=== PATIENT | female | born 1955 | race Caucasian/White ===

== ENCOUNTER 2018-12-29 11:07 | Outpatient (CLI) | payer MEDICAID, SELFPAY ==
[2018-12-29 12:06] LABS: Abs Immature Grans 0.03 k/cumm (0.0-0.09); Absolute Basophil Count 0.05 k/cumm (0.0-0.2); Absolute Eosinophil Count 0.31 k/cumm (0.0-0.7); Absolute Lymphocyte Count 2.34 k/cumm (1.2-3.4); Absolute Monocyte Count 0.62 k/cumm (0.11-0.7); Absolute Neutrophil Count 5.05 k/cumm (1.2-6.7); Basophils % 0.6; Eosinophils % 3.7; HGB 13.1 g/dL (12.0-15.5); Immature Grans % 0.4; Lymphocytes % 27.9; Mean Corp. HGB Concentration 32.8 g/dL (32.0-36.0); Mean Corpuscular Hemoglobin 29.1 pg (27.0-33.0); Mean Corpuscular Volume 88.9 fL (80-95); Mean Platelet Volume 12.3 fL (8.0-11.0); Monocytes % 7.4; Platelet Count 316 x1000/uL (130-400); RBC Distribution Width 14.5 % (11.7-14.6)
[2018-12-29 13:02] LABS: ALT 22 U/L (14-59); AST 17 U/L (15-37); Albumin 3.7 g/dL (3.4-5.0); Alkaline Phosphatase 96 U/L (46-116); Anion Gap 10.8 mmol/L (3-11); BUN 11 mg/dL (7-18); Bilirubin, Total 0.2 mg/dL (0.2-1.0); CO2 23.2 mmol/L (21.0-32.0); CREATININE 1.05 mg/dL (0.55-1.02); Calcium 8.7 mg/dL (8.5-10.1); Calculated LDL 186 mg/dL; Chloride 104 mmol/L (98-107); Cholesterol 290 mg/dL (50-200); Estimated GFR 52.93 (mL/min/1.73m2); Glucose 107 mg/dL (70-100); HDL Cholesterol 36 mg/dL (40-60); Sodium 138 mmol/L (136-145); TSH (W/Ref FT4) 4.75 uIU/mL (0.36-3.74); Triglyceride 342 mg/dL (30-150)
[2018-12-29 13:25] LABS: FREE T4 0.69 ng/dL (0.76-1.46)
== END 2018-12-29 11:27 ==
PROVIDERS: PCP Internal Medicine; Visit Provider Internal Medicine
DX: I10 Essential (primary) hypertension (principal); R50.9 Fever, unspecified
CPT/HCPCS: 36415; 80053; 80061; 84439; 84443; 85025

== ENCOUNTER 2018-12-29 11:56 | Outpatient (CLI) | payer MEDICAID, SELFPAY ==
--- NOTE | 2018-12-29 11:05 | DI.RAD_ITS ---
EXAM: XR HIP LT COMPLETE AP PELVIS INDICATION: pain LT HIP M25.552. COMPARISON: No exams were available for comparison TECHNIQUE: 2D digital imaging was performed. FINDINGS: The bony structures are normally mineralized. The hip joint appears intact. There is no evidence of a fracture or dislocation.
--- NOTE | 2018-12-29 11:05 | DI.RAD_ITS ---
EXAM: XR CERVICAL SPINE COMP 4-5V INDICATION: CERVICALGIA M54.2. COMPARISON: No exams were available for comparison TECHNIQUE: 2D digital imaging was performed. FINDINGS: Six cervical vertebra are demonstrated on the lateral projection. There is straightening of the norm al cervical lordosis likely on the basis of spasm. There is no evidence of gross disc space narrowin g. Facet joint DJD is identified and is most prominent at C3-C4 and C4-C5. The neural canal and martha ral foramen appear patent. The odontoid is intact and is closely applied to the anterior arch of C1. The prevertebral soft tissues are unremarkable. IMPRESSION: Degenerative changes involving the cervical spine as described above.
== END 2018-12-29 12:16 ==
PROVIDERS: PCP Internal Medicine; Visit Provider Internal Medicine
DX: M54.2 Cervicalgia (principal); M47.812 Spondylosis without myelopathy or radiculopathy, cervical region; M25.552 Pain in left hip
CPT/HCPCS: 72050; 73502

== ENCOUNTER 2019-01-10 15:03 | Outpatient (CLI) | payer MEDICAID, SELFPAY ==
[2019-01-10 16:19] LABS: TSH (W/Ref FT4) 18.48 uIU/mL (0.36-3.74)
[2019-01-10 16:43] LABS: FREE T4 0.72 ng/dL (0.76-1.46)
== END 2019-01-10 15:23 ==
PROVIDERS: PCP Internal Medicine; Visit Provider Internal Medicine
DX: E03.9 Hypothyroidism, unspecified (principal); F30.10 Manic episode without psychotic symptoms, unspecified
CPT/HCPCS: 36415; 84439; 84443

== ENCOUNTER 2019-09-04 11:20 | Outpatient (CLI) | payer MEDICAID, SELFPAY ==
[2019-09-04 12:36] LABS: Abs Immature Grans 0.05 k/cumm (0.0-0.09); Absolute Basophil Count 0.03 k/cumm (0.0-0.2); Absolute Eosinophil Count 0.03 k/cumm (0.0-0.7); Absolute Lymphocyte Count 2.67 k/cumm (1.2-3.4); Absolute Monocyte Count 0.85 k/cumm (0.11-0.7); Basophils % 0.3; Eosinophils % 0.3; HCT 41.7 % (36.0-46.0); HGB 14.3 g/dL (12.0-15.5); Immature Grans % 0.5 %; Lymphocytes % 24.4; Mean Corp. HGB Concentration 34.3 g/dL (32.0-36.0); Mean Corpuscular Hemoglobin 30.1 pg (27.0-33.0); Mean Corpuscular Volume 87.8 fL (80-95); Mean Platelet Volume 13.4 fL (8.0-11.0); Monocytes % 7.8; Neutrophils % 66.7; Platelet Count 279 x1000/uL (130-400); RBC 4.75 m/cumm (4.00-5.20); RBC Distribution Width 13.6 % (11.7-14.6); White Blood Cell Count 10.94 k/cumm (4.4-10.8)
[2019-09-04 13:40] LABS: ALT 20 U/L (14-59); AST 16 U/L (15-37); Albumin 4.5 g/dL (3.4-5.0); Alkaline Phosphatase 90 U/L (46-116); Anion Gap 9.4 mmol/L (3-11); BUN 11 mg/dL (7-18); Bilirubin, Total 0.3 mg/dL (0.2-1.0); C-Reactive Protein 0.22 mg/dL (0.0-0.3); CO2 25.6 mmol/L (21.0-32.0); CREATININE 1.17 mg/dL (0.55-1.02); Calcium 9.6 mg/dL (8.5-10.1); Chloride 100 mmol/L (98-107); Estimated GFR 46.57 (mL/min/1.73m2); Glucose 107 mg/dL (74-106); Potassium 4.8 mmol/L (3.5-5.1); Sodium 135 mmol/L (136-145); TSH 2.71 uIU/mL (0.36-3.74); Total Protein 7.8 g/dL (6.4-8.2)
== END 2019-09-04 11:40 ==
PROVIDERS: PCP Nurse Practitioner; Visit Provider Family Medicine
DX: R53.83 Other fatigue (principal); K52.89 Other specified noninfective gastroenteritis and colitis
CPT/HCPCS: 36415; 80053; 84443; 85025; 86140

== ENCOUNTER 2019-09-07 15:19 | Outpatient (REF) | payer MEDICAID, SELFPAY | END 2019-09-07 15:39 | LOC: LBN 15:19 | PROVIDERS: PCP Nurse Practitioner; Visit Provider Family Medicine | DX: R19.7 Diarrhea, unspecified (principal) | CPT/HCPCS: 87329; 87798 ==

== ENCOUNTER 2020-08-27 16:45 | Outpatient (REF) | payer MEDICAID, SELFPAY ==
[2020-08-27 21:39] LABS: ALT 18 U/L (14-59); AST 15 U/L (15-37); Albumin 4.4 g/dL (3.4-5.0); Alkaline Phosphatase 104 U/L (46-116); Anion Gap 13.3 mmol/L (3-11); BUN 11 mg/dL (7-18); Bilirubin, Total 0.3 mg/dL (0.2-1.0); CO2 23.7 mmol/L (21.0-32.0); Calcium 9.3 mg/dL (8.5-10.1); Chloride 105 mmol/L (98-107); Estimated GFR 55.64 (mL/min/1.73m2); Glucose 112 mg/dL (74-106); Potassium 4.2 mmol/L (3.5-5.1); Sodium 142 mmol/L (136-145); TSH (W/Ref FT4) 3.67 uIU/mL (0.36-3.74); Total Protein 7.9 g/dL (6.4-8.2)
== END 2020-08-27 16:46 | disposition home or self-care (01) ==
LOC: LBN 16:45
PROVIDERS: PCP Nurse Practitioner; Visit Provider Family Medicine
DX: E03.9 Hypothyroidism, unspecified (principal); I10 Essential (primary) hypertension; N18.31 Chronic kidney disease, stage 3a
CPT/HCPCS: 80053; 84443

== ENCOUNTER 2021-02-19 01:24 | Outpatient (CLI) | payer MEDICAID, SELFPAY ==
[2021-02-19 11:23] LABS: Hemoglobin A1C 5.7 % (<5.7)
[2021-02-19 14:00] LABS: Calculated LDL 106 mg/dL (<100); Cholesterol 183 mg/dL (<200); HDL Cholesterol 54 mg/dL (40-60); TSH (W/Ref FT4) 2.98 uIU/mL (0.36-3.74); Triglyceride 118 mg/dL (<150)
== END 2021-02-19 01:25 | disposition home or self-care (01) ==
LOC: LBO 01:24
PROVIDERS: PCP Nurse Practitioner; Visit Provider Nurse Practitioner
DX: E03.8 Other specified hypothyroidism (principal); E06.3 Autoimmune thyroiditis; E78.2 Mixed hyperlipidemia; I10 Essential (primary) hypertension
CPT/HCPCS: 36415; 80061; 83036; 84443

== ENCOUNTER 2021-07-14 14:41 | Emergency (ER) | payer MEDICAID, SELFPAY ==
[2021-07-14 15:09] VITALS: BP 116/58; PULSE 89; RESP 18; TEMP 36.4; O2SAT 98
[2021-07-14 15:36] VITALS: BP 113/63; PULSE 84; RESP 17; TEMP 36.7; O2SAT 94
[2021-07-14 17:30] VITALS: BP 157/89; PULSE 96; RESP 17; TEMP 37; O2SAT 96
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
[2021-07-14] MEDS: Doxycycline Hyclate 100 MG CAP PO (19:32)
== END 2021-07-14 19:35 | disposition home or self-care (01) ==
PROVIDERS: Emergency Provider Physician Assistant; PCP Nurse Practitioner
DX: L03.114 Cellulitis of left upper limb (principal); L03.113 Cellulitis of right upper limb
CPT/HCPCS: 99283

== ENCOUNTER 2021-08-05 22:20 | Outpatient (REF) | payer MEDICAID, SELFPAY | END 2021-08-05 22:21 | disposition home or self-care (01) | LOC: LBN 22:20 | PROVIDERS: PCP Nurse Practitioner; Visit Provider Family Medicine | DX: R21 Rash and other nonspecific skin eruption; L98.8 Other specified disorders of the skin and subcutaneous tissue | CPT/HCPCS: 87077; 87070; 87205 ==

== ENCOUNTER 2021-12-31 12:38 | Outpatient (CLI) | payer MEDICARE, MEDICAID, SELFPAY ==
--- NOTE | 2021-12-31 07:45 | DI.RAD_ITS ---
Exam(s) XR LUMBAR SPINE COMPLETE EXAM: XR LUMBAR SPINE COMPLETE CLINICAL HISTORY: rt hip pain,BACK PAIN, M54.9 TECHNIQUE: COMPARISON: No exams were available for comparison FINDINGS: Five views were obtained. There are moderate degenerative changes of the SI joints. There is a mini mal biconvex thoracolumbar scoliosis. There is no evidence of spondylolysis or spondylolisthesis. T here is mild loss of disc height from L3-4 through L5-S1. Moderate hypertrophic endplate and facet c hanges are noted throughout the lower lumbar spine. No evidence of compression fracture. IMPRESSION: Moderate DJD of the lumbar spine as described above. RADIATION DOSE DELIVERED: Total DLP
== END 2021-12-31 12:58 ==
PROVIDERS: PCP Nurse Practitioner; Visit Provider Family Medicine
DX: M47.816 Spondylosis without myelopathy or radiculopathy, lumbar region (principal); M47.817 Spondylosis without myelopathy or radiculopathy, lumbosacral region
CPT/HCPCS: 72110

== ENCOUNTER 2022-03-16 02:40 | Outpatient (CLI) | payer MEDICARE, MEDICAID, SELFPAY ==
--- NOTE | 2022-03-16 07:30 | DI.RAD_ITS ---
Exam(s) XR HIP LT COMPLETE AP PELVIS EXAM: XR HIP LT COMPLETE AP PELVIS INDICATION: left hip pain,M25.552. COMPARISON: CR XR HIP LT COMPLETE AP PELVIS from 12/29/2018 TECHNIQUE: 2D digital imaging was performed. Three views. FINDINGS: Hip joint spaces are maintained. Mild superior acetabular spurring. Small enthesophytes at greater trochanters. Coarse calcifications seen near right greater trochanter. No bony erosions. SI joints show mild degenerative changes. No fracture or suspicious bony lesion. IMPRESSION: Mild degenerative changes. No acute abnormality. DATA REPOSITORY: RADIATION DOSE DELIVERED:
== END 2022-03-16 03:00 ==
PROVIDERS: PCP Family Medicine; Visit Provider Family Medicine
DX: M16.12 Unilateral primary osteoarthritis, left hip (principal)
CPT/HCPCS: 73502

== ENCOUNTER 2022-05-04 00:51 | Outpatient (CLI) | payer MEDICARE, MEDICAID, SELFPAY ==
--- NOTE | 2022-05-04 08:00 | DI.CTLCSR_ITS ---
Exam(s) CT CHEST LUNG CANCER SCREEN EXAM: CT CHEST LUNG CANCER SCREEN CLINICAL HISTORY: Screening for lung cancer,current smoker,F17.210 TECHNIQUE: Imaging Protocol: Axial computed tomography images with coronal and sagittal reformatted images were created and reviewed COMPARISON: No exams were available for comparison FINDINGS: Tracheobronchial tree: Patent where visualized. Pulmonary parenchyma: No consolidation or dominant measurable mass. No architectural distortion. Lung Nodules: There is a 3.6 mm nodule in the lateral aspect of the right middle lobe. There is a 3. 1 mm nodule in the more inferior aspect of the right middle lobe. There is a triangular shaped 4 mm nodule with smooth margins associated with the right minor fissure. There is a 0.8 cm triangular nod ule with smooth margins associated with the right major fissure. Mediastinum and Kristi: No dominant adenopathy or fluid collection. The esophagus is unremarkable. Thyroid gland: Unremarkable. Lymph nodes: Unremarkable. Pleura: No effusion or pneumothorax. Heart: The heart is not dilated. No coronary artery calcifications are seen. No pericardial effusion . Aorta: Thoracic aorta non-dilated.Atherosclerosis is present. Upper abdomen: Unremarkable. Soft Tissues: Unremarkable. Bones: Within normal limits. IMPRESSION: Pulmonary nodules as described above. Lung RADS Cat 2 - Benign Appearance / Behavior: Nodules with a very low likelihood of becoming a clin ically active cancer due to size or lack of growth Lung-RADS 1.0 CATEGORIES: Category 0 - Prior chest CT exam(s) being located for comparison. Category 1 - Annual screening in 12 months. No nodules or definitely benign nodules. Category 2 - Annual screening in 12 months. Benign appearance. Nodules with low likelihood of becomin g active cancer. Category 3 - 6-month follow-up. Probably benign. Short-term follow-up suggested. Nodules with low lik elihood of becoming active cancer. Category 4A - 3-month follow-up and CT/PET if >8 mm in size. Suspicious finding. Findings which requi re additional testing. Category 4B - Findings which require additional testing and tissue sampling. Suspicious finding. Category 4X - Category 3 or 4 nodules with additional features or imaging findings that increases the suspicion of malignancy. Modifier S- Potentially clinically significant finding. (Non lung cancer) RADIATION DOSE DELIVERED: 84.72mGy.cm Total DLP 84.72mGy.cmTotal DLP DATA REPOSITORY: All CT scans at this facility are submitted to the National Radiology Data Registry (NRDR) Dose Index Registry (DIR) with the [employer] ([employer]). RADIATION OPTIMIZATION: All CT scans at this facility use at least one of these dose optimization te chniques: automated exposure control; mA and/or kV adjustment per patient size (includes targeted exa ms where dose is matched to clinical indication); or iterative reconstruction.
== END 2022-05-04 01:11 ==
LOC: DI 00:51
PROVIDERS: PCP Family Medicine; Visit Provider Family Medicine
DX: Z12.2 Encounter for screening for malignant neoplasm of respiratory organs (principal); F17.210 Nicotine dependence, cigarettes, uncomplicated; R91.8 Other nonspecific abnormal finding of lung field
CPT/HCPCS: 71271

== ENCOUNTER 2022-07-10 15:22 | Outpatient (REF) | payer MEDICARE, MEDICAID, SELFPAY | END 2022-07-10 15:23 | disposition home or self-care (01) | LOC: LBN 15:22 | PROVIDERS: PCP Family Medicine; Visit Provider Nurse Practitioner Family | DX: R31.9 Hematuria, unspecified (principal) | CPT/HCPCS: 87086 ==

== ENCOUNTER 2022-09-21 04:28 | Outpatient (CLI) | payer MEDICARE, MEDICAID, SELFPAY ==
[2022-09-21 12:10] LABS: ESR 8 mm/hr (0-30)
[2022-09-21 12:54] LABS: BUN 9 mg/dL (7-18); C-Reactive Protein 0.13 mg/dL (0.0-0.3); CREATININE 1.1 mg/dL (0.55-1.02); Chloride 107 mmol/L (98-107); Estimated GFR 55.07 (mL/min/1.73m2); Glucose 118 mg/dL (74-106); Potassium 4.4 mmol/L (3.5-5.1); Sodium 142 mmol/L (136-145)
[2022-09-21 13:04] LABS: TSH (W/Ref FT4) 3.32 uIU/mL (0.36-3.74)
== END 2022-09-21 04:29 | disposition home or self-care (01) ==
LOC: LOS 04:28
PROVIDERS: Nurse Practitioner Family; PCP Family Medicine; Visit Provider Family Medicine
DX: E03.9 Hypothyroidism, unspecified (principal); I10 Essential (primary) hypertension; T80.90XA Unspecified complication following infusion and therapeutic injection, initial encounter; R73.03 Prediabetes
CPT/HCPCS: 36415; 80048; 85652; 84443; 86140

== ENCOUNTER 2024-05-26 23:39 | Emergency (ER) | payer MEDICARE, SELFPAY ==
[2024-05-26 23:44] VITALS: BP 152/106; PULSE 137; RESP 18; TEMP 35.9; O2SAT 97
--- NOTE | 2024-05-26 23:45 | RT.EKG_ITS ---
APPROVED REPORT Exam: Resting ECG Reason for Exam: pelvic pain Patient Location: E HR:132 bpm ECG Measurements Heart Rate 132 AXIS WI 131 P 34 QRSd 84 QRS -33 QT 305 T 61 QTc 454 Conclusion Sinus tachycardia...rate> 99 Left axis deviation...QRS axis (-30,-90) Nonspecific T abnormalities, lateral leads...T <-0.10mV, I aVL V5 V6 no ST segment or T wave abnormalities to suggest occlusive TX
[2024-05-26 23:47] VITALS: PULSE 140; O2SAT 95
[2024-05-26 23:48] VITALS: BP 152/106; PULSE 136; PULSE 137; O2SAT 98
[2024-05-26 23:50] VITALS: PULSE 137; PULSE 138; RESP 23; O2SAT 97
[2024-05-26 23:52] VITALS: RESP 30
[2024-05-27] VITALS (19 sets, daily range): BP systolic 124–142; BP diastolic 83–107; PULSE 80–133; RESP 14–31; O2SAT 92–94
--- NOTE | 2024-05-27 00:02 | NUR.NOTE ---
Nursing Note: Pt complained that she did want to tell multiple people why she was in the hospital. This RN told the patient that I was to be triaging her and that she needed to inform me as to what emergency she was having and what was wrong. Pt stated that my attitude was not appreciated. Techs in the room educated the patient that there is a process in the ED and that we are here to help. This RN continued the triage the patient to help understand what is wrong. RN also instructed pt the need for an EKG, pt was compliant with this .
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
[2024-05-27] MEDS: Lidocaine 5% Patch 1 PATCH TP (00:58)
[2024-05-27] MEDS: Ketorolac 15 MG/ML VIAL IVP (00:59)
[2024-05-27] MEDS: ACETAMINOPHEN 1,000 MG/100 ML BAG 400 MG IVPB (00:59)
[2024-05-27] MEDS: Ondansetron 4 MG/2 ML VIAL IVP (00:59)
[2024-05-27] MEDS: Cyclobenzaprine 10 MG TAB PO (01:00)
--- NOTE | 2024-05-27 01:49 | DI.RAD_ITS ---
Exam(s) XR LUMBAR SPINE AP, LAT EXAM: XR LUMBAR SPINE AP, LAT CLINICAL HISTORY: low back pain. TECHNIQUE: 2D digital imaging was performed. Five views. COMPARISON: CR XR LUMBAR SPINE COMPLETE from 12/31/2021 FINDINGS: The bony detail is mildly obscured by overlying bowel gas. BONES: No fracture or destructive lesion. Vertebral body heights are maintained. Moderate facet hy pertrophy identified . DISKS: Mild narrowing of the L2-3 disc space. Endplate osteophytes. Moderate narrowing of the L3-4 disc space with endplate osteophytes and endplate sclerosis anteriorly. The remaining intervertebral disc spaces are maintained. ALIGNMENT: Lumbar spinal alignment is within normal limits. SOFT TISSUE: Normal. IMPRESSION: Degenerative changes greatest at L3-4. No acute abnormality. DATA REPOSITORY: RADIATION DOSE DELIVERED:
--- NOTE | 2024-05-27 01:49 | DI.RAD_ITS ---
Exam(s) XR PELVIS AP EXAM: XR PELVIS AP CLINICAL HISTORY: low back pain. TECHNIQUE: 2D digital imaging was performed. Single AP view. COMPARISON: CR XR HIP LT COMPLETE AP PELVIS from 03/16/2022 FINDINGS: The sacrum and portions of the iliac crests are somewhat obscured by overlying bowel gas. There is a lso an overlying monitoring lead. BONES: No acute fracture is present. No bony destructive lesion is seen. Small enthesophytes at the g reater trochanters. JOINTS: No dislocation present. Severe superior joint space narrowing of the left hip with progressi on from the prior exam.. The right hip joint space is maintained. The SI joints and pubic symphysis are unremarkable. SOFT TISSUE: Normal. IMPRESSION: No acute abnormality. DATA REPOSITORY: RADIATION DOSE DELIVERED:
--- NOTE | 2024-05-27 02:49 | DI.VRAD_ITS ---
PROCEDURE INFORMATION: Exam: XR Pelvis Exam date and time: 05/27/2024 1:27 AM Age: 69 years old Clinical indication: Other: Low back pain TECHNIQUE: Imaging protocol: Radiologic exam of the pelvis. Views: 1 or 2 view. COMPARISON: CR XR HIP LT COMPLETE AP PELVIS 03/16/2022 4:09 PM FINDINGS: Bones/joints: No acute fracture. There is mild enthesopathic spurring along the superior aspect of the right greater trochanter. There are degenerative changes in the lower lumbar spine with mild spurring at L4-L5, L5-S1 Soft tissues: Unremarkable. IMPRESSION: No acute fracture or dislocation. Dictated and Authenticated by: Salomón Nunez MD. Orderin Nesha Leyva MD
--- NOTE | 2024-05-27 02:51 | DI.VRAD_ITS ---
PROCEDURE INFORMATION: Exam: XR Lumbosacral Spine Exam date and time: 05/27/2024 1:30 AM Age: 69 years old Clinical indication: Low back pain TECHNIQUE: Imaging protocol: Radiologic exam of the lumbosacral spine. Views: 2 or 3 views. COMPARISON: CR XR LUMBAR SPINE COMPLETE 12/31/2021 3:02 PM FINDINGS: Bones/joints: There is normal alignment. Vertebral body heights are within normal limits. Disc degenerative changes with mild loss of disc height at L3-L4 and subchondral sclerosis. Multilevel marginal spurring most prominent at L3-L4. Multilevel mild facet hypertrophic changes most prominent at L5-S1 bilaterally. Soft tissues: Unremarkable. Organs: There are small calcifications projecting over bilateral renal shadows. IMPRESSION: 1. No acute fracture or subluxation. 2. Spondylosis and disc degenerative changes most prominent at L3-L4. Dictated and Authenticated by: Salomón Nunez MD. Orderin Nesha Leyva MD
== END 2024-05-27 03:11 | disposition home or self-care (01) ==
PROVIDERS: Emergency Provider Student in an Organized Health Care Education/Training Program; PCP Family Medicine
DX: M54.50 Low back pain, unspecified (principal); X50.0XXA Overexertion from strenuous movement or load, initial encounter; F17.210 Nicotine dependence, cigarettes, uncomplicated
CPT/HCPCS: 93005; 96365; 96375; 99284; 72100; 72170; 93010; 99283; J0131; J1885; J2405

== ENCOUNTER 2024-06-01 17:03 | Observation (INO) | payer MEDICARE, SELFPAY ==
[2024-06-01 17:06] VITALS: BP 130/87; PULSE 90; RESP 18; TEMP 36.8; O2SAT 98
--- NOTE | 2024-06-01 17:30 | DI.CT_ITS ---
Exam(s) CT ABDOMEN PELVIS W EXAM: CT ABDOMEN PELVIS W CLINICAL HISTORY: left lower abdomen/groin and back pain. TECHNIQUE: Imaging Protocol: Axial computed tomography images with coronal and sagittal reformatted images were created and reviewed CONTRAST MATERIAL: Intravenous: Omnipaque-350 100cc Oral: None COMPARISON: CT CT LUMBAR SPINE RECONS from 06/01/2024 FINDINGS: VISUALIZED LUNG BASES: No nodules nor pleural effusions evident. ABDOMEN: There is no ascites. LIVER: There are no focal hepatic lesions evident. No dilated intrahepatic ducts. GALLBLADDER/BILIARY: No obvious gallbladder pathology. CBD is not dilated. PANCREAS: No evidence of pancreatic mass nor dilatation of the pancreatic duct. SPLEEN: Spleen is not enlarged. No obvious intrasplenic lesions. Splenic and portal veins are paten t. ADRENALS: There are no significant adrenal masses. KIDNEYS:Right kidney unremarkable. There is a small benign cyst in the lateral cortex of the left ki dney which measures 1.6 x 1.5 cm and does not require further workup. Smaller additional benign cyst s are noted in the inferior pole the left kidney, also not requiring further workup. There are no so lid renal masses. No calculi nor hydronephrosis. No hydroureter.. ABDOMINAL AORTA: The abdominal aorta is very atherosclerotic but not enlarged. The common iliac natalee rakesh are also atherosclerotic but not enlarged. LYMPH NODES:There is no retroperitoneal nor paraaortic adenopathy. ABDOMINAL WALL: No evidence of significant anterior abdominal wall nor inguinal hernia. GI: There is no evidence of bowel obstruction, free air, nor abscess. PELVIS: GI: No evidence of appendicitis.There is extensive sigmoid diverticulosis. No obvious acute divertic ulitis. No free fluid in the pelvis. LYMPH NODES: No intrapelvic adenopathy. Shoddy lymph nodes are noted in the inguinal regions. REPRODUCTIVE: Slight thickening of the endometrium is noted for this age group. There are no abnormal adnexal masses. No free fluid in the pelvis. URINARY BLADDER: No calculi nor obvious masses evident OSSEOUS: No fractures and no significant osseous lesions. There is moderate disc space narrowing at L3-4 level. No listhesis. There are degenerative changes in the hip joints, more prominent on the left side. In addition, there is peripherally enhancing hypodensity off the inferior aspect of the left hip demarcus uring approximately 2.5 by 0.7 cm. Has the appearance of an abnormal collection intimately related t o the late it to the inferior aspect of the hip joint, possibly extension of the capsule versus is in fectious process such as abscess in the pelvic musculature at this level. IMPRESSION: 1. There is extensive sigmoid diverticulosis. There is no evidence of acute diverticulitis. 2. Uterine endometrial thickness is increased for this age group. There also appears to be a possibl e polyp exhibiting Zhou mint on the superior wall of the endometrium. Follow-up ultrasound recommen ded to rule out significant endometrial pathology. There are no abnormal adnexal masses nor free flu id in the pelvis. 3. There is advanced degenerative narrowing of the left hip noted. Abnormal collection associated wi th the inferior aspect of the left hip and the subjacent musculature. This may be extension of left hip joint effusion related to degenerative changes although cannot exclude infectious process. Recom mend follow-up MRI. 4. Moderate disc space narrowing at L3-4 level. See separate lumbar spine CT report RADIATION DOSE DELIVERED: 395.39mGy.cm Total DLP DATA REPOSITORY: All CT scans at this facility are submitted to the National Radiology Data Registry (NRDR) Dose Index Registry (DIR) with the [employer] (A[employer]). RADIATION OPTIMIZATION: All CT scans at this facility use at least one of these dose optimization te chniques: automated exposure control; mA and/or kV adjustment per patient size (includes targeted exa ms where dose is matched to clinical indication); or iterative reconstruction.
--- NOTE | 2024-06-01 17:38 | DI.CT_ITS ---
Exam(s) CT LUMBAR SPINE RECONS EXAM: CT LUMBAR SPINE RECONS CLINICAL HISTORY: lumbar spine recons. TECHNIQUE: Imaging Protocol: Axial computed tomography images with coronal and sagittal reformatted images were created and reviewed COMPARISON: No exams were available for comparison FINDINGS: Bones: There are no fractures, listhesis, nor pars defects. There are no lytic osseous lesions evide nt. INDIVIDUAL LEVELS: T12-L1:No disc herniation nor canal stenosis. Facet joints unremarkable. No foraminal stenosis. L1-2: No disc herniation nor canal stenosis. Facet joints unremarkable. No foraminal stenosis. L2-3: There is mild disc space narrowing and anterior osseous lipping. There is severe central spin al canal stenosis at this level due to short AP dimensions of the pedicles, broad annular bulging and degenerative facet arthropathy. No significant foraminal stenosis. L3-4: There is moderate-advanced disc space narrowing at this level. There is severe spinal canal s tenosis at this level due to short AP dimensions of the pedicles, broad annular bulging and degenerat melany facet arthropathy. There is mild foraminal stenosis on the left side. No significant foraminal stenosis on the right side. L4-5: Relatively preserved disc height. However, there is a central disc protrusion which indents t he anterior thecal sac. There is moderate-severe central spinal canal stenosis at this level due to the annular bulging and disc protrusion, short AP dimensions of the pedicles and facet arthropathy. Mild bilateral foraminal stenosis. L5-S1: This level exhibits normal disc height. No obvious disc herniation. Mild central canal sten osis. Bilateral significant facet arthropathy. No pars defects. PARASPINAL SOFT TISSUES: Very atherosclerotic abdominal aorta but without significant dilatation. Sm all benign cysts noted in left kidney. IMPRESSION: 1. Severe multilevel central spinal canal stenosis, as discussed above.. Mild-moderate multilevel fo raminal stenosis. 2. Multilevel advanced facet arthropathy. 3. No fracture or listhesis nor significant osseous lesions in the lumbar vertebrae.. RADIATION DOSE DELIVERED: 395.39mGy.cm Total DLP DATA REPOSITORY: All CT scans at this facility are submitted to the National Radiology Data Registry (NRDR) Dose Index Registry (DIR) with the [employer] (ACR). RADIATION OPTIMIZATION: All CT scans at this facility use at least one of these dose optimization te chniques: automated exposure control; mA and/or kV adjustment per patient size (includes targeted exa ms where dose is matched to clinical indication); or iterative reconstruction.
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
[2024-06-01] MEDS: HYDROmorphone 2 MG/ML SYR IVP (18:05)
[2024-06-01 18:37] VITALS: PULSE 106; RESP 16; TEMP 36.5
[2024-06-01 18:41] LABS: Abs Immature Grans 0.14 10^3/uL (0.0-0.06); Absolute Basophil Count 0.04 10^3/uL (0.0-0.2); Absolute Monocyte Count 0.76 10^3/uL (0.1-0.8); Basophils % 0.3 %; Eosinophils % 0.1 %; HCT 29.4 % (36.0-46.0); HGB 9.6 g/dL (11.2-15.7); Lymphocytes % 8.4 %; MCH 27.4 pg (27.0-33.0); MCHC 32.7 % (32.0-36.0); MCV 84 fL (80-95); MPV 10.2 fL (8.0-11.0); Monocytes % 5.6 %; Neutrophils % 84.6 %; Platelet Count 570 10^3/uL (130-400); RDW 14.5 % (11.7-14.6); RDW-SD 44.6 fL
[2024-06-01 18:43] LABS: Absolute Eosinophil Count 0.01 10^3/uL (0.0-0.7); Absolute Lymphocyte Count 1.13 10^3/uL (1.2-3.4); Absolute Neutrophil Count 11.42 10^3/uL (1.2-6.7)
[2024-06-01 18:55] LABS: INR 1.1 (0.9-1.1); PTT Activated 32.4 sec (20.6-30.2); Prothrombin Time 11.4 sec (9.1-11.1)
[2024-06-01 18:57] LABS: ALT 20 U/L (14-59); AST 14 U/L (15-37); Alkaline Phosphatase 121 U/L (46-116); Anion Gap 10.8 mmol/L (3-11); BUN 9 mg/dL (7-18); Bilirubin, Total 0.5 mg/dL (0.2-1.0); CO2 27.2 mmol/L (21.0-32.0); CREATININE 0.9 mg/dL (0.55-1.02); Calcium 9.4 mg/dL (8.5-10.1); Chloride 101 mmol/L (98-107); Glucose 96 mg/dL (74-106); Lipase 13 U/L (<78); Magnesium 1.7 mg/dL (1.8-2.4); Potassium 3.4 mmol/L (3.5-5.1); Sodium 139 mmol/L (136-145); Total Protein 7.6 g/dL (6.4-8.2)
[2024-06-01] MEDS: Omnipaque 350 MG/ML 100 ML BTL IJ (19:27)
[2024-06-01] MEDS: Normal Saline - Diluent 50 ML VIAL IJ (19:32)
--- NOTE | 2024-06-01 20:21 | DI.VRAD_ITS ---
PROCEDURE INFORMATION: Exam: CT Lumbar Spine Without Contrast Exam date and time: 06/01/2024 7:17 PM Age: 69 years old Clinical indication: Lumbar spine recons TECHNIQUE: Imaging protocol: Computed tomography of the lumbar spine without contrast. COMPARISON: CR XR LUMBAR SPINE AP, LAT 05/27/2024 1:30 AM FINDINGS: Bones/joints: No acute fracture. Normal alignment. There is multilevel degenerative disc disease and bilateral facet arthropathy noted most prominent at the L3-L4 level with moderate to severe left neural foraminal narrowing. Moderate right neural foraminal narrowing noted at L4-L5 and L5-S1. At least mild spinal canal stenosis noted most prominent at L3-L4 where there is superimposed ligamentum flavum hypertrophy Kidneys and ureters: Cysts noted in the left kidney partially visualized. Vasculature: Large volume atherosclerotic plaque noted in the aorta greatest in the upper region. Soft tissues: No significant subcutaneous soft tissue abnormality. IMPRESSION: Multilevel degenerative changes most prominent at L3-L4 with moderate to severe neural foraminal narrowing and at least mild spinal canal stenosis. If there is further clinical concern, nonemergent MRI may be obtained for further evaluation. Dictated and Authenticated by: Felisa Abad MD. Orderin Jermaine Ji MD
--- NOTE | 2024-06-01 20:56 | DI.VRAD_ITS ---
PROCEDURE INFORMATION: Exam: CT Abdomen And Pelvis With Contrast Exam date and time: 06/01/2024 7:17 PM Age: 69 years old Clinical indication: Left lower abdomen/groin and back pain TECHNIQUE: Imaging protocol: Computed tomography of the abdomen and pelvis with contrast. Contrast material: 350; Contrast volume: 75 ml; Contrast route: INTRAVENOUS (IV); COMPARISON: CR XR PELVIS AP 05/27/2024 1:27 AM FINDINGS: Liver: Unremarkable liver. No mass identified. Gallbladder and biliary ducts: The gallbladder is unremarkable. No calcified stones. No ductal dilation. Pancreas: No ductal dilation. No pancreatic lesion seen. Spleen: The spleen is unremarkable. No splenomegaly. Adrenal glands: The adrenal glands are unremarkable. No defined mass. Kidneys and ureters: There is a 1.9 cm simple appearing cyst in the left kidney. No hydronephrosis. Prominent regions of parenchyma noted in the renal pelves, likely columns of Evans. Stomach and bowel: There is diffuse diverticulosis noted sigmoid colon. There is mild bowel wall thickening noted in the sigmoid colon. No bowel obstruction. Appendix: No evidence of appendicitis. Intraperitoneal space: No free air. No significant fluid collection. Vasculature: No abdominal aortic aneurysm. Multifocal regions atherosclerotic noted throughout the abdominal aorta mild narrowing in the upper abdomen. Lymph nodes: No enlarged lymph nodes. Urinary bladder: Unremarkable as visualized. Reproductive: Unremarkable as visualized. Bones/joints: No acute fracture. Multilevel degenerative changes noted in the lumbar spine. Soft tissues: Unremarkable. IMPRESSION: 1. No evidence of bowel obstruction. 2. Mild wall thickening in the sigmoid colon with diffuse diverticulosis noted. Correlate with clinical findings to exclude possible developing diverticulitis. 3. Multifocal regions of atherosclerotic plaque in the abdominal aorta with mild narrowing in the upper aspect. No aortic aneurysm or dissection. Dictated and Authenticated by: Felisa Abad MD. Orderin Jermaine Ji MD
[2024-06-01 21:21] LABS: Bilirubin Negative (Negative); Blood Negative (Negative); Clarity Clear (Clear); Glucose Negative (Negative); Ketones 15 mg/dL (Negative); Leukocyte Esterase Negative (Negative); Nitrite Negative (Negative); Urobilinogen 0.2 mg/dL (Up to 0.2)
[2024-06-01] MEDS: HYDROmorphone 2 MG/ML SYR 1 MG IVP (22:39)
[2024-06-01] MEDS: Normal Saline 1,000 ML 1000 ML IV (22:41)
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
[2024-06-01 23:41] LABS: ESR 86 mm/hr (0-30)
[2024-06-01 23:42] LABS: *AMPHETAMINES SCREEN URINE Negative (Negative); *BARBITURATES SCREEN URINE Negative (Negative); *BENZODIAZEPINES SCREEN URINE Negative (Negative); Cannabinoids THC Positive (Negative); Cocaine Screen,Urine Negative (Negative); METHADONE URINE SCREEN Negative (Negative); OPIATES URINE SCREEN Positive (Negative)
[2024-06-01 23:44] LABS: Tricyclic Antidepressants Positive (Negative)
[2024-06-01 23:51] LABS: C-Reactive Protein 17.77 mg/dL (<or=0.5)
[2024-06-02] VITALS (8 sets, daily range): BP systolic 120–185; BP diastolic 68–99; PULSE 69–119; RESP 16–20; TEMP 36–38.2; O2SAT 93–99
[2024-06-02 00:52] LABS: COVID-19 PCR Negative (Negative); Influenza A PCR Negative (Negative); Influenza B PCR Negative (Negative); RSV PCR Negative (Negative)
--- NOTE | 2024-06-02 00:52 | W.PCEDHO ---
Registration Status: Primary Language: Preferred Language: ED Information & Data Chief Complaint Orthopedic 06/01/24 17:42 Triage Note Pt reports pain for last 06/01/24 17:06 month in groin. Has been evaluated before. total of 100 mcg fentanyl via [employer] . Pt reports has been taking Flexeril, but states it is not working. Reports 10/10 pain and 20/10 with movement . Medical / Surgical History (Last Reviewed 06/01/24 @ 23:42 by Thee Matute) PTSD (post-traumatic stress disorder) Chronic diarrhea Most Recent Vital Signs Temperature 36.5 C 06/01/24 18:37 Temperature Source Oral 06/01/24 18:37 Pulse 110 H 06/02/24 00:37 Pulse Rhythm Regular 06/01/24 18:37 Pulse Strength Normal 06/01/24 18:37 Respiratory Rate 16 06/02/24 00:37 Blood Pressure 180/90 H 06/02/24 00:37 Blood Pressure Position Sitting 06/01/24 17:06 Pulse Oximetry 99 06/02/24 00:37 Oxygen Delivery Method Room Air 06/02/24 00:37 Oxygen Flow Rate 0 06/02/24 00:37 Pain Level 6 06/01/24 18:37 Allergies Sulfa (Sulfonamide Antibiotics) Allergy (Intermediate, Unverified 06/01/24 18:44) hives Active Medications Generic Name Dose Route Start Last Admin Trade Name Ramakrishnaq PRN Reason Stop Dose Admin Iohexol 100 ml 06/01/24 19:30 06/01/24 19:27 Omnipaque 350 Mg/Ml 100 Ml Btl IJ 07/01/24 23:59 70 ml DIRECTED JENNIFER Administration Sodium Chloride 50 ml 06/01/24 19:45 06/01/24 19:32 Normal Saline - Diluent 50 Ml Vial IJ 50 ml .FOR DI USE JENNIFER Administration IV IV Catheter Type [Left Peripheral IV Antecubital] IV Catheter Gauge [Left 20 Antecubital] Diagnostics 06/02/24 06/01/24 06/01/24 Range/Units 00:10 21:00 18:34 WBC 13.50 H (4.4-10.8) 10^3/uL RBC 3.50 L (3.93-5.22) 10^6/uL Hgb 9.6 L (11.2-15.7) g/dL Hct 29.4 L (36.0-46.0) % MCV 84 (80-95) fL MCH 27.4 (27.0-33.0) pg MCHC 32.7 (32.0-36.0) % RDW 14.5 (11.7-14.6) % Plt Count 570 H (130-400) 10^3/uL MPV 10.2 (8.0-11.0) fL Immature Gran % 1.0 % Neutrophils % 84.6 % Lymphocytes % 8.4 % Monocytes % 5.6 % Eosinophils % 0.1 % Basophils % 0.3 % Nucleated RBC % 0.0 (0.0-0.3) % Absolute Neutrophils 11.42 H (1.2-6.7) 10^3/uL Absolute Lymphocytes 1.13 L (1.2-3.4) 10^3/uL Absolute Monocytes 0.76 (0.1-0.8) 10^3/uL Absolute Eosinophils 0.01 (0.0-0.7) 10^3/uL Absolute Basophils 0.04 (0.0-0.2) 10^3/uL ESR 86 H (0-30) mm/hr PT 11.4 H (9.1-11.1) sec INR 1.1 (0.9-1.1) APTT 32.4 H (20.6-30.2) sec Sodium 139 (136-145) mmol/L Potassium 3.4 L (3.5-5.1) mmol/L Chloride 101 (98-107) mmol/L Carbon Dioxide 27.2 (21.0-32.0) mmol/L Anion Gap 10.8 (3-11) mmol/L BUN 9 (7-18) mg/dL Creatinine 0.9 (0.55-1.02) mg/dL Est GFR (CKD-EPI 2020) 69.20 (mL/min/1.73m2) Glucose 96 (74-106) mg/dL Calcium 9.4 (8.5-10.1) mg/dL Magnesium 1.7 L (1.8-2.4) mg/dL Total Bilirubin 0.5 (0.2-1.0) mg/dL AST 14 L (15-37) U/L ALT 20 (14-59) U/L Alkaline Phosphatase 121 H (46-116) U/L C-Reactive Protein 17.77 H (<or=0.5) mg/dL Total Protein 7.6 (6.4-8.2) g/dL Albumin 2.0 L (3.4-5.0) g/dL Lipase 13 (<78) U/L Urine Color Yellow (Yellow) Urine Clarity Clear (Clear) Urine pH 6.0 (5-8) Ur Specific [place] 1.010 (1.005-1.025) Urine Protein Negative (Neg-Trace) mg/dL Urine Ketones 15 H (Negative) mg/dL Urine Blood Negative (Negative) Urine Nitrite Negative (Negative) Urine Bilirubin Negative (Negative) Urine Urobilinogen 0.2 (Up to 0.2) mg/dL Ur Leukocyte Esterase Negative (Negative) Urine Glucose Negative (Negative) mg/dL Urine Opiates Screen Positive A (Negative) Urine Methadone Screen Negative (Negative) Ur Barbiturates Screen Negative (Negative) Ur Tricyclics Screen Positive A (Negative) Ur Amphetamines Screen Negative (Negative) U Benzodiazepines Scrn Negative (Negative) Urine Cocaine Screen Negative (Negative) Ur THC Screen Positive A (Negative) COVID-19 Source Pending SARS-CoV-2 (PCR) Pending Influenza Type A (PCR) Pending Influenza Type B (PCR) Pending RSV (PCR) Pending Intake and Output - 24 Hour Total 06/01/24 16:57 thru 06/02/24 00:00 Intake Total 1000 Balance 1000 Weight 68.039 kg Intake: IV 1000 Falls Risk Assessment History of Falls Previous History 06/01/24 18:37 Contributing Factors No Factors 06/01/24 18:37 Ambulatory Aids Independent 06/01/24 18:37 Tubes/Lines None 06/01/24 18:37 Gait Evaluation W/no contributing factors 06/01/24 18:37 Cognition No cognitive impairment 06/01/24 18:37 Fall Total Score 25 06/01/24 18:37 Level of Risk Moderate Risk 06/01/24 18:37 Problems (Last Reviewed 06/01/24 @ 23:42 by Thee Matute) Spinal stenosis of lumbar region at multiple levels (Chronic) Degenerative disc disease, lumbar (Chronic) Intractable pain (Acute) Left hip pain (Acute) Hypothyroidism (Chronic) Hyperlipidemia (Chronic) Tobacco dependence (Chronic) v v v v v v v v v Sending and/or Receiving Nurses: Please use comment section below to note any information pertinent to the patient hand-off not included above. Information / Comments:No Questions Report received from:Domi PACHECO
[2024-06-02 01:02] LABS: Source Nasopharynx
[2024-06-02] MEDS: Propranolol 60 MG CAPCR PO (02:03)
[2024-06-02] MEDS: Normal Saline 1,000 ML 125 ML IV ×2 (05:26→11:57)
[2024-06-02] MEDS: HYDROmorphone 2 MG/ML SYR IVP ×5 (05:34→21:32)
[2024-06-02] MEDS: Levothyroxine 50 MCG TAB PO (05:35)
[2024-06-02 06:42] LABS: HCT 26.5 % (36.0-46.0); HGB 8.7 g/dL (11.2-15.7); MCH 26.9 pg (27.0-33.0); MCHC 32.8 % (32.0-36.0); MCV 82 fL (80-95); MPV 10.5 fL (8.0-11.0); Platelet Count 532 10^3/uL (130-400); RBC 3.23 10^6/uL (3.93-5.22); RDW 14.6 % (11.7-14.6); RDW-SD 43.9 fL; WBC 10.98 10^3/uL (4.4-10.8)
--- NOTE | 2024-06-02 07:00 | DI.MRI_ITS ---
Exam(s) MR LOWER JOINT LT WO EXAM: MR LOWER JOINT LT WO CLINICAL HISTORY: severe left hip pain after minor injury one month TECHNIQUE: Multiplanar multisequence MRI of the hip was performed. COMPARISON: CT CT ABDOMEN PELVIS W from 06/01/2024 FINDINGS: MARROW/ARTICULATIONS:There is signal abnormality in the left femoral head and neck and throughout the acetabulum and there is also a left hip joint effusion. There is asymmetric advanced [id number] n arrowing of the left hip joint space and there is also some flattening of the superior aspect of the left femoral head. SOFT TISSUES: There is extensive edema in all of the musculature surrounding the left hip as well as with in the left side of the pelvis involving the left obturator internus as well as the left iliacus muscle. The external in muscular group also involved most predominately the gluteus minimus. There is also fluid around the iliopsoas tendon There also 2 small adjacent cysts-fluid collections medially which are either extension of the hip mata int versus small abscesses. LABRUM: Degenerative changes TENDONS: As above. Also incidentally noted is partial tearing at the common hamstrings insertion sit e on the ischial tuberosity. IMPRESSION: 1. Extensive intraosseous and soft tissue findings in the left hip and adjacent musculature including left pelvic sidewall musculature. 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 Als o extensive abnormal edema signal within the adjacent musculature as described above (myositis). DATA REPOSITORY:
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
[2024-06-02 07:28] LABS: ALT 16 U/L (14-59); AST 22 U/L (15-37); Albumin 1.8 g/dL (3.4-5.0); Alkaline Phosphatase 110 U/L (46-116); Anion Gap 12.2 mmol/L (3-11); BUN 10 mg/dL (7-18); Bilirubin, Total 0.4 mg/dL (0.2-1.0); CO2 24.8 mmol/L (21.0-32.0); CREATININE 0.7 mg/dL (0.55-1.02); Calcium 8.8 mg/dL (8.5-10.1); Chloride 102 mmol/L (98-107); Estimated GFR 93.56 (mL/min/1.73m2); Glucose 91 mg/dL (74-106); Magnesium 1.8 mg/dL (1.8-2.4); Potassium 3.5 mmol/L (3.5-5.1); Sodium 139 mmol/L (136-145); Total Protein 6.8 g/dL (6.4-8.2)
[2024-06-02 07:50] LABS: TSH (W/Ref FT4) 15.91 uIU/mL (0.36-3.74)
[2024-06-02 08:07] LABS: FREE T4 1.09 ng/dL (0.76-1.46)
[2024-06-02] MEDS: Lidocaine 5% Patch 1 PATCH TP ×2 (08:14→09:58)
[2024-06-02] MEDS: Enoxaparin 40 MG/0.4 ML SYR SC (08:15)
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
--- NOTE | 2024-06-02 09:43 | W.PM.PROGNOT ---
Date of Service Date of service: 06/02/24 Time of Service: 09:44 Assessment and Plan Assessment and plan (1) Sepsis: Start date: 06/02/24 Start time: :58 Status: Acute Assessment and plan: Sepsis criteria met with tachycardia at 99 and temp at 35.9 --source been L hip septic arthritis Will complete broad spectrum antibiotic coverage as per below Obtain blood cultures (2) Septic arthritis: Start date: 06/02/24 Start time: :58 Status: Acute Assessment and plan: ortho consult- concluded in subacute septic arthritis of the left hip with recommendations for Left hip aspiration with radiologist as soon as possible with Crystal analysis (Crystal analysis BF), Gram stain & culture (Fluid aerobic cult w gm stain), Cell count & differential (Body fluid cell count & diff). Vancomycin 15 mg/kg Cefepime 2 gm IV Q8H Adjust antimicrobial therapy as per L hip arthrocentesis fluid results -As per MRI IMPRESSION: Extensive intraosseous and soft tissue findings in the left hip and adjacent musculature including left pelvic sidewall musculature. 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 Also extensive abnormal edema signal within the adjacent musculature as described above (myositis). -Dr. Frazier to complete L hip arthrocentesis and specimen collection as per ortho- Dr. George's recommendations Prior to MRI [facility] contacted for IR procedure round trip- -[facility] Dr. Moreno orthopedist- s/p MRI initiated discussion re: transfer to inpatient at [facility] as per Dr. George's recommendations for definitive management ofcomplex infection, likely to require hip joint and muscle irrigation debridement, bone resection, antibiotic spacer, and staged hip replacement; neoplasm seems less likely. -MRI report, gram stain, other aspiration results to be sent to [facility] transfer center as requested by Dr. Moreno (3) Arthritis of left hip: Start date: 06/02/24 Start time: :58 Status: Acute Assessment and plan: As above -Continue pain managementwith scheduled APAP, PRN ketorolac and PRN hydromorphone Maintain n.p.o. in case needs urgent left hip irrigation and debridement surgery although there is a little joint/left to save (4) Nicotine dependence: Status: Acute Assessment and plan: NRT (5) On deep vein thrombosis (DVT) prophylaxis: Status: Acute Assessment and plan: On lovenox- hold if transfering for Sx Discussed with Dr. Rangel Subjective Subjective Patient reports: still having pain, voiding w/o difficulty and flatus; denies tolerating liquids well, tolerating a regular diet, no bowel movement, diarrhea, nausea, vomiting, shortness of breath or fever Exam Narrative Exam Narrative: Constitutional The patient is uncomfortable with mobilizing LLE HENMT: Facial structures with normal appearance Neck: Normal ROM, no meningeal signs Neuro:Alert and oriented X4 , no neurological focal deficit, PERRLA Resp: unlabored breathing, clear lung bilaterally Cardio: regular rhythm, S1, S2, no murmur, capillary refill<3 sec., bilateral radial and dorsalis pedis pulses are positive GI: Abdomen is not distended, soft and non tender, bowel sounds are present Back/spine/Pelvis: No back tenderness, normal alignment Integumentary: No skin lesions or rash on exposed skin Extremities: strength 5/5 to bilateral lower and upper extremities Psych: RASS 0, anxious mood and affect. Objective Last Vital Signs Temp 37 C 06/02/24 07:58 Pulse 99 H 06/02/24 07:58 Resp 18 06/02/24 07:58 BP 142/99 H 06/02/24 07:58 Pulse Ox 98 06/02/24 07:58 Laboratory Results - last 24 hr 06/01/24 06/01/24 06/02/24 18:34 21:00 00:10 WBC 13.50 H RBC 3.50 L Hgb 9.6 L Hct 29.4 L MCV 84 MCH 27.4 MCHC 32.7 RDW 14.5 Plt Count 570 H MPV 10.2 Immature Gran % 1.0 Neutrophils % 84.6 Lymphocytes % 8.4 Monocytes % 5.6 Eosinophils % 0.1 Basophils % 0.3 Nucleated RBC % 0.0 Absolute Neutrophils 11.42 H Absolute Lymphocytes 1.13 L Absolute Monocytes 0.76 Absolute Eosinophils 0.01 Absolute Basophils 0.04 ESR 86 H PT 11.4 H INR 1.1 APTT 32.4 H Sodium 139 Potassium 3.4 L Chloride 101 Carbon Dioxide 27.2 Anion Gap 10.8 BUN 9 Creatinine 0.9 Est GFR (CKD-EPI 2020) 69.20 Glucose 96 Calcium 9.4 Magnesium 1.7 L Total Bilirubin 0.5 AST 14 L ALT 20 Alkaline Phosphatase 121 H C-Reactive Protein 17.77 H Total Protein 7.6 Albumin 2.0 L Lipase 13 TSH Free T4 Urine Color Yellow Urine Clarity Clear Urine pH 6.0 Ur Specific [place] 1.010 Urine Protein Negative Urine Ketones 15 H Urine Blood Negative Urine Nitrite Negative Urine Bilirubin Negative Urine Urobilinogen 0.2 Ur Leukocyte Esterase Negative Urine Glucose Negative Urine Opiates Screen Positive A Urine Methadone Screen Negative Ur Barbiturates Screen Negative Ur Tricyclics Screen Positive A Ur Amphetamines Screen Negative U Benzodiazepines Scrn Negative Urine Cocaine Screen Negative Ur THC Screen Positive A COVID-19 Source Nasopharynx SARS-CoV-2 (PCR) Negative Influenza Type A (PCR) Negative Influenza Type B (PCR) Negative RSV (PCR) Negative 06/02/24 06:22 WBC 10.98 H RBC 3.23 L Hgb 8.7 L Hct 26.5 L MCV 82 MCH 26.9 L MCHC 32.8 RDW 14.6 Plt Count 532 H MPV 10.5 Immature Gran % Neutrophils % Lymphocytes % Monocytes % Eosinophils % Basophils % Nucleated RBC % Absolute Neutrophils Absolute Lymphocytes Absolute Monocytes Absolute Eosinophils Absolute Basophils ESR PT INR APTT Sodium 139 Potassium 3.5 Chloride 102 Carbon Dioxide 24.8 Anion Gap 12.2 H BUN 10 Creatinine 0.7 Est GFR (CKD-EPI 2020) 93.56 Glucose 91 Calcium 8.8 Magnesium 1.8 Total Bilirubin 0.4 AST 22 ALT 16 Alkaline Phosphatase 110 C-Reactive Protein Total Protein 6.8 Albumin 1.8 L Lipase TSH 15.91 H Free T4 1.09 Urine Color Urine Clarity Urine pH Ur Specific [place] Urine Protein Urine Ketones Urine Blood Urine Nitrite Urine Bilirubin Urine Urobilinogen Ur Leukocyte Esterase Urine Glucose Urine Opiates Screen Urine Methadone Screen Ur Barbiturates Screen Ur Tricyclics Screen Ur Amphetamines Screen U Benzodiazepines Scrn Urine Cocaine Screen Ur THC Screen COVID-19 Source SARS-CoV-2 (PCR) Influenza Type A (PCR) Influenza Type B (PCR) RSV (PCR) Time Spent with Patient Time Spent with Patient: >50 minutes Time was spent: preparing to see the patient(eg.review tests), obtaining and/or reviewing separately otained hiistory, ordering medications,tests, procedures, referring, communicating with other health health care consultant, indepentently interpreting results, counseling the patient and care coordination
[2024-06-02] MEDS: Normal Saline Flush 10 ML SYR IVP ×4 (09:57→21:34)
--- NOTE | 2024-06-02 10:44 | DI.VRAD_ITS ---
PROCEDURE INFORMATION: Exam: MR Left Lower Extremity Joint Without Contrast; Hip Exam date and time: 06/02/2024 8:47 AM Age: 69 years old Clinical indication: Pain; Hip; Left TECHNIQUE: Imaging protocol: Magnetic resonance imaging of the left lower extremity joint without contrast. Exam focused on the hip. COMPARISON: CT ABDOMEN PELVIS W 06/01/2024 7:17 PM FINDINGS: Bones/joints: The contralateral hip and portions of the remaining pelvis are included on some sequences. The hip joints are normally aligned. The left is with a small effusion. It is also with moderate chondromalacia and very mild periarticular osteophyte formation. The femoral head is generally mildly edematous. There is a geographic area subcortical signal abnormality in the anterior superior aspect of the femoral head extending over an area measuring up to approximately 2.7 cm AP, 2.9 cm transverse and 1.6 cm craniocaudad, with mild flattening of the articular surface here, suggestive of avascular necrosis. Mild marrow edema involves the roof and anterior and posterior columns of the left acetabulum as well. The contralateral hip is with very mild degenerative changes, and mild lower lumbar spondylosis is partially included. The sacroiliac joints are patent as partially included. Labrum: No gross tear of the left acetabular labrum is evident. TENDONS: Tendons of iliopsoas group: Unremarkable. No evidence of tear. Tendons of medial compartment of thigh: Unremarkable. No evidence of tear. Tendons of lateral rotators of hip: Unremarkable. No evidence of tear. Tendons of gluteal group: Unremarkable. No evidence of tear. Tendons of posterior compartment of thigh: Small partial left hamstrings tendon tear. Soft tissues: Moderate edema involves the deep soft tissues and much of the musculature about the left hip. This extends into the pelvis along the deep aspect of the iliacus muscle, and along the left pelvic sidewall. A focus of fluid measuring approximately 2.4 x 1.8 x 0.5 cm is present overlying the left lesser trochanter medially. Bowel: There is again sigmoid colonic diverticulosis. Intraperitoneal space: Very small free fluid is present in the pelvis. IMPRESSION: 1. 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 2. Small left hip joint effusion. While this could be reactive to avascular necrosis, there is also moderate edema involving the deep soft tissues and much of the musculature about the left hip, along with mild edema in the acetabulum, and small fluid medial to the lesser trochanter, which raises the possibility that this could rather represent infection or superimposed infection. 3. Degenerative changes as described. 4. Very small free fluid in the pelvis, nonspecific. 5. Small partial left hamstrings tendon tear. Dictated and Authenticated by: Garrison Lopez MD. Orderin Juju Kingston MD
[2024-06-02] MEDS: CEFEPIME 2 GM in Normal Saline 100 ML IVPB ×2 (11:10→18:31)
[2024-06-02] MEDS: VANCOMYCIN/WATER (PEG) 1.75 GM/350 ML BAG IVPB (12:00)
[2024-06-02] MEDS: LORazepam 2 MG/ML VIAL 1 MG IVP (13:06)
--- NOTE | 2024-06-02 13:36 | NT_ITS ---
PT Notes Visit Reasons: Intractable pain,Multilevel DDD,Spinal stenosis,Le Patient now at ED for stat hip joint aspiration and will directly transfer to [facility] right after. No PT evaluation needed at this time.
--- NOTE | 2024-06-02 13:36 | PT.INNT ---
PT Notes Visit Reasons: Intractable pain,Multilevel DDD,Spinal stenosis,Le Patient now at ED for stat hip joint aspiration and will directly transfer [place] [facility] [place]. No PT evaluation needed at this time.
[2024-06-02] MEDS: Normal Saline - Diluent 50 ML VIAL IJ (13:46)
[2024-06-02] MEDS: Omnipaque 300 MG/ML 10 ML BTL 5 ML IJ (13:47)
[2024-06-02] MEDS: Lidocaine 1% Pres-Free 30 ML VIAL IJ (13:48)
--- NOTE | 2024-06-02 13:50 | DI.RAD_ITS ---
Exam(s) RF JOINT INJ. FLUORO GUID RAD EXAM: RF JOINT INJ. FLUORO GUID RAD-FLUOROSCOPIC GUIDED LEFT HIP ASPIRATION CLINICAL HISTORY: Septic arthritis left hip with fluid collection. TECHNIQUE: 2D and realtime digital imaging was performed. CONTRAST MATERIAL: Intra-articular Omnipaque 300 COMPARISON: No exams were available for comparison FINDINGS: This fluoroscopic guided left hip aspiration was performed at the request of the orthopedic surgeon a marva hospitalist. Patient was consented prior to this procedure. [facility] nurse was present for conscious sedation. Patient was placed in the supine position on the fluoroscopy table. Using sterile technique and adequate skin-subcutaneous anesthesia, fluoroscopic guidance was used to advance a 20 gauge spinal needle into the hip joint at level the femoral neck. 10 cc syringe was att ached to needle and aspiration revealed yielded only 2 cc of serosanguineous appearing fluid. At this point 2 cc of Omnipaque 300 was injected through the needle to confirm intra-articular positi on of the needle. With intra-articular position confirmed with an injected 15 cc of preservative-free sterile saline into the articular space. Thereafter a 2nd 18 gauge spinal needle was also advanced i nto the joint space at the femoral neck level. Aspiration through both needles yielded approximately 10 cc of fluid. Dewy Rose were removed. All obtained fluid was put in the provided test tubes. The original 2 cc of aspirated articular fluid was left in the syringe and all of the above were hand delivered by myself to the lab. Patient tolerated this procedure well and there were no intraprocedural complications. IMPRESSION: Left hip joint fluoroscopic guided aspiration as described above. RADIATION DOSE DELIVERED: Jessicar=4.39mGy
[2024-06-02 15:24] LABS: Clarity Cloudy; Nucleated Cells 11575 uL (0); Polynuclear Cells 100 %
[2024-06-02 15:25] LABS: Mononuclear Cells 0 %
[2024-06-02 15:29] LABS: Crystals (BF) No Crystals seen
[2024-06-02] MEDS: ACETAMINOPHEN 1,000 MG/100 ML BAG 400 MG IVPB (16:38)
[2024-06-02] MEDS: Pantoprazole 40 MG VIAL IVP (16:38)
[2024-06-02] MEDS: Patch Removal 1 EACH TP (21:06)
[2024-06-02] MEDS: Atorvastatin 40 MG TAB 80 MG PO (21:07)
[2024-06-02] MEDS: traZODone 50 MG TAB 150 MG PO (21:07)
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
== END 2024-06-02 22:58 | disposition short-term general hospital (02) ==
LOC: ER 06-02 00:20 → MS 06-02 00:59
PROVIDERS: Student in an Organized Health Care Education/Training Program; Admitting Provider Family Medicine; Emergency Provider Emergency Medicine; PCP Family Medicine; Visit Provider Family Medicine
DX: M00.852 Arthritis due to other bacteria, left hip; M51.362 Other intervertebral disc degeneration, lumbar region with discogenic back pain and lower extremity pain; M48.062 Spinal stenosis, lumbar region with neurogenic claudication; E06.3 Autoimmune thyroiditis; E78.2 Mixed hyperlipidemia; F17.210 Nicotine dependence, cigarettes, uncomplicated; A41.9 Sepsis, unspecified organism; M16.12 Unilateral primary osteoarthritis, left hip; Z79.899 Other long term (current) drug therapy; D72.829 Elevated white blood cell count, unspecified; F43.10 Post-traumatic stress disorder, unspecified; G47.00 Insomnia, unspecified; M54.50 Low back pain, unspecified; G62.9 Polyneuropathy, unspecified; R73.03 Prediabetes; M60.08 Infective myositis, other site; M86.8X5 Other osteomyelitis, thigh
CPT/HCPCS: 20610; 00123; 36415; 73721; 77002; 80053; 80307; 83690; 85027; 85652; 87040; 87077; 87637; 96361; 96365; 96366; 96367; 96372; 96375; 96376; 99223; 99285; J1650; 74177; 81003; 83735; 84439; 84443; 85025; 85610; 85730; 86140; 87070; 87205; 89051; 89060; 99239; G0378; J0131; J0692; J1171; J2060; J2470; J3372; J3490

== ENCOUNTER 2024-06-27 11:42 | Inpatient (IN) | payer MEDICARE, SELFPAY ==
--- NOTE | 2024-06-27 11:21 | W.PC.ACHO ---
Registration Status: Primary Language: Preferred Language: Medical / Surgical History (Last Reviewed 06/02/24 @ 12:24 by Thee Matute) PTSD (post-traumatic stress disorder) Chronic diarrhea Allergies Sulfa (Sulfonamide Antibiotics) Allergy (Intermediate, Unverified 06/01/24 18:44) hives v v v v v v v v v Sending and/or Receiving Nurses: Please use comment section below to note any information pertinent to the patient hand-off not included above. Information / Comments: Report received from: Keara PACHECO at [facility]
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
[2024-06-27 15:13] VITALS: BP 119/65; PULSE 76; RESP 18; TEMP 36.6; O2SAT 97
[2024-06-27] MEDS: cefTRIAXone 2 GM/50 ML BAG IVPB (15:52)
[2024-06-27] MEDS: Acetaminophen 325 MG TAB 650 MG PO ×2 (16:36→21:40)
[2024-06-27] MEDS: HYDROmorphone 4 MG TAB PO ×2 (17:25→21:40)
--- NOTE | 2024-06-27 17:45 | CMPROGNOTE_ITS ---
Date of service: 06/27/24 Time of Service: 16:00 Care Management Progress Note Progress Note Text Progress Note Text: Libia [place] [facility] [place] Swing Bed 1 program today. She is s/p left BOBBY secondary to septic arthritis, and will require 6 weeks of IV abx, with expected end date 07/16/23. Libia was pleasant with CM, sitting up in the bed, when we met. Libia's daughter, Autumn was with her friend, Christine. While pleasant, Libia wanted to keep the conversation short. She was not interested in speaking at length with CM today, and stated that she would answer any questions tomorrow. She did review the SWB agreement with CM, and she did sign. Libia declined any activity offerings today, and was made aware that these things are available at any time. Discharge Potential Discharge Needs: PCP F/U Appt and Surgical F/U Appt (ortho- Libia will require a revision of her BOBBY) Anticipated Barriers to Discharge: None Identified Patient/Family Education Needs: Review discharge instructions, discuss Ask Me Three Transportation: Private vehicle Plan: Libia will discharge on or around 07/15/24 when her abx course is complete. She will f/u with her PCP and with orthopedic surgery. She will transport home via private transportation. CM will continue to follow. Social Determinants of Health Screening Will the Patient Participate in the Screening?: Declined to provide
--- NOTE | 2024-06-27 17:55 | PDOC.CMACT ---
Date of service: 06/27/24 Time of Service: 17:56
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
--- NOTE | 2024-06-27 18:04 | CM.SWINGPC ---
Date of service: 06/27/24 Time of Service: 16:00 Swingbed Plan of Care Activites/Discharge Plan of care: SWING BED PROGRAM ACTIVITIES/DISCHARGE PLAN OF CARE ACTIVITIES PLAN Date:06/27/2024 Identified Need:Libia will need some activities to keep her busy while she rehabilitates. Intervention/Plan:CM will check in with Libia often to see if she would like anything from the activity cart. Initials PK DISCHARGE PLAN Date:06/27/24 Identified Need:Libia will be discharged home, perhaps with services, but independent at discharge. Intervention/Plan:Libia will participate in PT daily InitialsPK
[2024-06-27 19:52] VITALS: BP 111/69; PULSE 80; RESP 19; TEMP 37.1; O2SAT 99
[2024-06-27] MEDS: diazePAM 5 MG TAB PO (20:10)
[2024-06-27] MEDS: Enoxaparin 30 MG/0.3 ML SYR SC (21:39)
[2024-06-27] MEDS: traZODone 50 MG TAB 150 MG PO (21:39)
[2024-06-27] MEDS: Atorvastatin 40 MG TAB 80 MG PO (21:40)
[2024-06-27] MEDS: Propranolol 60 MG CAPCR PO (21:40)
[2024-06-28] MEDS: Levothyroxine 50 MCG TAB PO (04:40)
[2024-06-28] MEDS: HYDROmorphone 4 MG TAB PO ×4 (04:40→21:16)
[2024-06-28] MEDS: diazePAM 5 MG TAB PO ×3 (05:52→21:17)
[2024-06-28 06:57] LABS: Abs Immature Grans 0.03 10^3/uL (0.0-0.06); Absolute Basophil Count 0.08 10^3/uL (0.0-0.2); Absolute Eosinophil Count 0.54 10^3/uL (0.0-0.7); Absolute Lymphocyte Count 2.19 10^3/uL (1.2-3.4); Absolute Monocyte Count 0.49 10^3/uL (0.1-0.8); Absolute Neutrophil Count 3.21 10^3/uL (1.2-6.7); Basophils % 1.2 %; Eosinophils % 8.3 %; HGB 9.8 g/dL (11.2-15.7); Immature Grans % 0.5 %; Lymphocytes % 33.5 %; MCH 28.2 pg (27.0-33.0); MCHC 30.6 % (32.0-36.0); MCV 92 fL (80-95); Monocytes % 7.5 %; Platelet Count 388 10^3/uL (130-400); RBC 3.47 10^6/uL (3.93-5.22); RDW 18.2 % (11.7-14.6); RDW-SD 61.1 fL; WBC 6.54 10^3/uL (4.4-10.8)
[2024-06-28 07:07] LABS: ALT 24 U/L (14-59); AST 21 U/L (15-37); Albumin 3.1 g/dL (3.4-5.0); Alkaline Phosphatase 118 U/L (46-116); Anion Gap 9.8 mmol/L (3-11); BUN 23 mg/dL (7-18); Bilirubin, Total 0.2 mg/dL (0.2-1.0); CO2 29.2 mmol/L (21.0-32.0); CREATININE 0.9 mg/dL (0.55-1.02); Calcium 9.5 mg/dL (8.5-10.1); Chloride 101 mmol/L (98-107); Glucose 91 mg/dL (74-106); Potassium 3.9 mmol/L (3.5-5.1); Sodium 140 mmol/L (136-145); Total Protein 7.4 g/dL (6.4-8.2)
[2024-06-28 07:21] LABS: C-Reactive Protein < 0.50 mg/dL (<or=0.5)
[2024-06-28 09:30] VITALS: BP 106/58; PULSE 80; RESP 16; TEMP 36.7; O2SAT 99
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
[2024-06-28] MEDS: Lidocaine 5% Patch 1 PATCH TP (09:45)
[2024-06-28] MEDS: Sennosides/Docusate Sodium TAB 2 TAB PO ×2 (09:47→21:15)
[2024-06-28] MEDS: Acetaminophen 325 MG TAB 650 MG PO ×3 (09:47→21:15)
[2024-06-28] MEDS: Enoxaparin 30 MG/0.3 ML SYR SC ×2 (09:48→21:17)
[2024-06-28] MEDS: Aspirin E.C. 81 MG TABEC PO (09:48)
--- NOTE | 2024-06-28 11:52 | PHA.REVIEW2 ---
Pharmacy Admission Review Admission Clinical Review Admission Pharmacy Review: Thrombosis of thoracic aorta (Acute) Endometrial cystic hyperplasia (Acute) Left hip pain (Acute) Osteomyelitis (Acute) Septic arthritis (Acute) Sulfa (Sulfonamide Antibiotics) Allergy (Intermediate, Unverified 06/01/24 18:44) hives Resuscitation Status Full Code Height 5 ft 7 in Weight 69.3 kg Comments Comments/Follow Ups: Swing bed for ceftriaxone treatment Pharmacy Admission Review Renal Dosing Renal Dosing: BUN 23 mg/dL (7-18) H 06/28/24 06:05 Creatinine 0.9 mg/dL (0.55-1.02) 06/28/24 06:05 Medications needing adjustments: Reviewed (CrCl 58.06 mL/min) List of meds needing interventions: Current medications are okay Anticoagulation Anticoagulation: Hgb 9.8 g/dL (11.2-15.7) L 06/28/24 06:05 Hct 32.0 % (36.0-46.0) L 06/28/24 06:05 Plt Count 388 10^3/uL (130-400) 06/28/24 06:05 Creatinine 0.9 mg/dL (0.55-1.02) 06/28/24 06:05 DVT Prophylaxis: Reviewed Medications: Enoxaparin (30mg BID - dosing due to recent hip surgery at [facility]) Opiate Usage Evaluate Pain Scale/Pains Meds: Reviewed (hydromorphone 4mg PO q4h PRN - 16mg/24hrs. Pain level 8 at 0947) Scheduled Bowel Reg ordered if on Opiates?: Yes (Miralax + Senna/docusate) Relevant Labs Relevant Labs: Sodium 140 mmol/L (136-145) 06/28/24 06:05 Potassium 3.9 mmol/L (3.5-5.1) 06/28/24 06:05 Chloride 101 mmol/L (98-107) 06/28/24 06:05 C-Reactive Protein < 0.50 mg/dL (<or=0.5) 06/28/24 06:05 Electrolytes, C-Reactive P, ESR: Reviewed Cardiac Review BP, HR, EF%: Reviewed (BP 106/58 and HR 80) List meds needing interventions: Has order for propranolol CR 60mg daily QTc Review QTc: Reviewed (454 from 05/26/24 - most recent EKG on file) IV to PO Switch IV Medications: Reviewed (ceftriaxone) Home Meds Home Med List reviewed: Reviewed Relevent Home Meds Not ordered & why?: Swing from [facility] - home med list was updated by nursing using the discharge list from [facility] (why some meds have no info in external med history) Current Meds Current Medication Order Review: Intervened Comments: Added IV admission order set Pharmacy Antibiotic Review Relevant Labs: Relevant Labs 06/28/24 06:05 C-Reactive Protein < 0.50 Pharmacy Antibiotic Activity: C/S review and Reviewed, no change Comments: Patient is on ceftriaxone, treating until 07/15/24 per H+P, for osteomyelitis of left hip. Comments Comments/Follow Ups: Swing bed for ceftriaxone treatment
[2024-06-28] MEDS: cefTRIAXone 2 GM/50 ML BAG IVPB (14:39)
--- NOTE | 2024-06-28 16:22 | CM.SWINGPC ---
Date of service: 06/28/24 Time of Service: 16:22 Swingbed Plan of Care Activites/Discharge Plan of care: SWING BED PROGRAM ACTIVITIES/DISCHARGE PLAN OF CARE ACTIVITIES PLAN Date:06/28/24 Identified Need:individual needs Intervention/Plan:TV in room, offer activity cart, offer Reiki when available, offer per therapy when available, offer music therapy when available, encourage visitors, encourage outings Initials PK DISCHARGE PLAN Date: Identified Need: Intervention/Plan: Initials
--- NOTE | 2024-06-28 16:24 | PDOC.CMPRO ---
Date of service: 06/28/24 Time of Service: 16:24 Care Management Progress Note Progress Note Text Progress Note Text: Libia was sitting up in the bed, looking well, when CM met with her today. She was very pleasant and easy to converse with. She worked with PT today, and did well. She is still having a lot of pain, and while we talked, was noted to wince. Libia would like to fill out an Advanced Directive. CM will plan to help her with this tomorrow. Discharge Potential Discharge Needs: PCP F/U Appt and Surgical F/U Appt Anticipated Barriers to Discharge: None Identified Patient/Family Education Needs: Review discharge instructions, discuss Ask Me Three Transportation: Private vehicle Plan: Anticipate that Libia will be discharged with no new services. At this time, it is expected that she will need to f/u with outpatient PT. Libia will f/u with her PCP and her orthopedic surgeon, and continue per her plan of care. CM will continue to follow. Social Determinants of Health Screening Will the Patient Participate in the Screening?: Declined to provide
[2024-06-28 16:33] VITALS: BP 145/79; PULSE 83; RESP 20; TEMP 35.6; O2SAT 100
[2024-06-28 17:02] VITALS: TEMP 36.3
--- NOTE | 2024-06-28 18:07 | NUR.NOTE ---
patient left with daughter, Autumn Roldan ([phone] Cell) for privileges outside of the hospital due to swing bed status, pt agrees she is responsoible for herself outside of the hospital and [facility] is not responsible for anything that happens while she is gone. Patient knows to return by 1999 as she has medications due. Patient wheeled down by this RN to daughter's POV at 1800. Nursing Note:
[2024-06-28 20:55] VITALS: BP 127/80; PULSE 100; RESP 22; TEMP 36.7; O2SAT 99
[2024-06-28] MEDS: Propranolol 60 MG CAPCR PO (21:15)
[2024-06-28] MEDS: Atorvastatin 40 MG TAB 80 MG PO (21:16)
[2024-06-28] MEDS: traZODone 50 MG TAB 150 MG PO (21:16)
[2024-06-28] MEDS: Normal Saline Flush 10 ML SYR IVP (21:17)
[2024-06-28] MEDS: Patch Removal 1 EACH TP (21:38)
[2024-06-29] MEDS: Levothyroxine 50 MCG TAB PO (06:10)
[2024-06-29] MEDS: diazePAM 5 MG TAB PO ×3 (06:11→20:34)
[2024-06-29] MEDS: HYDROmorphone 4 MG TAB PO ×4 (06:11→21:55)
[2024-06-29] MEDS: Polyethylene Glycol 3350 17 GM PACKET PO (07:51)
[2024-06-29] MEDS: Lidocaine 5% Patch 1 PATCH TP (07:51)
[2024-06-29] MEDS: Aspirin E.C. 81 MG TABEC PO (07:53)
[2024-06-29] MEDS: Sennosides/Docusate Sodium TAB 2 TAB PO ×2 (07:53→20:33)
[2024-06-29] MEDS: Acetaminophen 325 MG TAB 650 MG PO ×3 (07:53→15:50)
[2024-06-29 08:01] VITALS: BP 100/76; PULSE 88; RESP 20; TEMP 36.4; O2SAT 100
[2024-06-29] MEDS: Enoxaparin 30 MG/0.3 ML SYR SC ×2 (08:13→20:35)
--- NOTE | 2024-06-29 11:22 | PT.INTREAT ---
PT Notes Visit Reasons: Osteomyelitis Left Hip Physical Therapy Inpatient Swing Bed Level I Treatment Note Date: 06/29/2024 Precautions: [place] [facility] [place] as of 06/03/[place]24, observe posterior hip precautions. WBAT on the L LE with AD. Subjective: Slept better last night. Agreeable to working with PT. Pain more controlled. Complained of some burning in R lateral thigh that subsided with rest. Objective: General Observation: Lidocaine patch in place in L lateral thigh. BOBBY incision well approximated and is healing. Mental Status: Alert and oriented as to person, place, time, and purpose. Able to pay attention, focus, and respond appropriately. Pain: 3-06/15 L hip area with movement Vital Signs: Closely monitored by nursing staff Bed Mobility/Transfers: Minimal cueing provided for use of B hands as needed for support, movement sequence, AD management, and posture to reduce fall risk and minimize pain report Rolling independent Supine to independent Sit to supine independent Sit to stand supervision with FWW Stand to sit supervision with FWW Bed to toilet seat supervision with FWW Toilet seat to bed supervision with FWW Bed to reclining chair supervision with FWW Gait: Tolerated 500 feet + 100 feet of level surface ambulation using FWW , step through gait pattern, mild antalgic gait. No report of increased pain in low back a nd L hip with weight bearing. Minimal verbal cueing only for more efficient gait pattern: symmetric step length and height. THERA EX: Instructed performance of exercises below every 2-3 hours in her room as follows: Worked on multiple angle isometric for the L quadriceps held for 5 counts x 10 reps using step stool and bed foot board Facilitated safe performance of bridging in supine with efficient recruitment of abdominals to protect back while strengthening it held for 5 counts x 10 reps Instructed on small range straight leg raise in supine held for 5 counts x 10 reps Balance: Static Sitting: Normal Dynamic Sitting: Good Static Standing: Fair Dynamic Standing: Fair Assessment: Patient was able to perform mobility ADLs when pre-medicated for pain just like today. She is agreeable to working on increasing strength and muscle mass of her L quadriceps and L hip major muscle groups while on abx regimen here. Plan of Care/Treatment Plan: 1-2x/day, 7 days/week x 1 week. Plan of care has been reviewed with the MEDICAL RECORD TRANSCRIBER providing the service under Physical Therapy direction. Initiate Physical Therapy intervention for pain management as needed, strengthening, bed mobility, transfers, gait, stairs, balance training, and use of assistive device. DISCHARGE RECOMMENDATIONS: [] Home with no services [] [] Home with services [specify] [] Home with outpatient PT [] [] SNF for continued rehabilitation [] [] Brass Instrument Repair Technician Care [] [] SNF versus LTC based on ability to participate and progress [] [X] OP PT for continued post BOBBY rehab whne cleared by orthopedic surgeon TREATMENT CODE/TIME: 18762 x 12 minutes for 1 unit, 98956 x 17 minutes for 1 unit (11:22-11:51).
[2024-06-29] MEDS: cefTRIAXone 2 GM/50 ML BAG IVPB (13:34)
[2024-06-29] MEDS: Normal Saline Flush 10 ML SYR IVP (14:45)
[2024-06-29 15:31] VITALS: BP 96/64; PULSE 85; RESP 20; TEMP 35.9; O2SAT 98
--- NOTE | 2024-06-29 15:52 | PDOC.CMPRO ---
Date of service: 06/29/24 Time of Service: 15:52 Care Management Progress Note Progress Note Text Progress Note Text: Libia was seen walking with PT today. She is doing well. She still c/o some pain, however. Libia was very happy to report that she went for a ride with her daughter last night. It was great to be out. Libia completed her advanced directive today with the help of CM. The AD has been emailed to [place] ethics. A copy has been placed in scanning. Libia has been given the original, a copy for her agent, and 2 more copies. Discharge Potential Discharge Needs: PCP F/U Appt and Surgical F/U Appt (ortho) Anticipated Barriers to Discharge: None Identified Patient/Family Education Needs: Review discharge instructions, discuss Ask Me Three Transportation: Private vehicle Plan: Anticipate that Libia will be discharged with no new services. At this time, it is expected that she will need to f/u with outpatient PT. Libia will f/u with her PCP and her orthopedic surgeon, and continue per her plan of care. CM will continue to follow. Social Determinants of Health Screening Will the Patient Participate in the Screening?: Declined to provide
--- NOTE | 2024-06-29 16:30 | CHAPLAIN ---
Libia was in bed, resting the opposite way with her feet at the head of the bed. I introduced myself and offered support. Libia ask for assistance getting switched around, help with her pillows, blankets and robe. She said she has a system down because she's been in a hospital for a while now and knows how to get herself comfortable.
[2024-06-29 20:01] VITALS: BP 108/66; PULSE 75; RESP 20; TEMP 36.7; O2SAT 100
[2024-06-29] MEDS: Atorvastatin 40 MG TAB 80 MG PO (20:33)
[2024-06-29] MEDS: Propranolol 60 MG CAPCR PO (20:33)
[2024-06-29] MEDS: traZODone 50 MG TAB 150 MG PO (20:34)
[2024-06-29] MEDS: Patch Removal 1 EACH TP (20:40)
[2024-06-30] MEDS: diazePAM 5 MG TAB PO ×2 (02:47→10:58)
[2024-06-30] MEDS: Levothyroxine 50 MCG TAB PO (04:01)
[2024-06-30] MEDS: HYDROmorphone 4 MG TAB PO ×3 (04:02→16:29)
[2024-06-30 07:21] VITALS: BP 109/63; PULSE 79; RESP 15; TEMP 36.7; O2SAT 98
[2024-06-30] MEDS: Lidocaine 5% Patch 1 PATCH TP (08:10)
[2024-06-30] MEDS: Enoxaparin 30 MG/0.3 ML SYR SC ×2 (08:10→20:35)
[2024-06-30] MEDS: Polyethylene Glycol 3350 17 GM PACKET PO (08:10)
[2024-06-30] MEDS: Aspirin E.C. 81 MG TABEC PO (08:11)
[2024-06-30] MEDS: Sennosides/Docusate Sodium TAB 2 TAB PO ×2 (08:12→19:44)
[2024-06-30] MEDS: Acetaminophen 325 MG TAB 650 MG PO ×4 (08:13→19:45)
[2024-06-30] MEDS: Ketorolac 15 MG/ML VIAL IVP (09:47)
[2024-06-30] MEDS: Normal Saline Flush 10 ML SYR IVP (09:47)
--- NOTE | 2024-06-30 11:27 | PTTR_ITS ---
PT Notes Visit Reasons: Osteomyelitis Left Hip Physical Therapy Inpatient Swing Bed Level I Treatment Note Date: 06/30/2024 Precautions: Per [facility] [place] as of 06/03/2024, observe posterior hip precautions. WBAT on the L LE with AD. Subjective: In significant pain this morning but with encouragement and possibility of decreased stiffness with movement, patient was agreeable to walking and exercises. Objective: General Observation: Lidocaine patch in place in L lateral thigh. BOBBY incision well approximated and is healing. Mental Status: Alert and oriented as to person, place, time, and purpose. Able to pay attention, focus, and respond appropriately. Pain: 6-7/10 L hip area with movement Vital Signs: Closely monitored by nursing staff Bed Mobility/Transfers: Minimal cueing provided for use of B hands as needed for support, movement sequence, AD management, and posture to reduce fall risk and minimize pain report Rolling independent Supine to independent Sit to supine independent Sit to stand stand by assist with FWW Stand to sit stand by assist with FWW Bed to toilet seat stand by assist with FWW Toilet seat to bed stand by assist with FWW Bed to reclining chair stand by assist with FWW Gait: Tolerated 250 feet of level surface ambulation using FWW, step through gait pattern, mild antalgic gait, stand by assist. Complained of pain worsening and sensation of burning happening in L hip and thigh tat subsided with seated rest. Minimal verbal cueing only for more efficient gait pattern: symmetric step length and height. THERA EX: Instructed performance of exercises below every 2-3 hours in her room as follows: Worked on multiple angle isometric for the L quadriceps held for 5 counts x 10 reps using step stool and bed foot board Facilitated safe performance of bridging in supine with efficient recruitment of abdominals to protect back while strengthening it held for 5 counts x 10 reps Instructed on small range straight leg raise in supine held for 5 counts x 10 reps Balance: Static Sitting: Normal Dynamic Sitting: Good Static Standing: Fair Dynamic Standing: Fair Assessment: Favoring L LE more today. Pain and fatigue limited activity tolerance and safe gait performance. Patient continues to demonstrate increased fall risk and functional mobility dependence due to pain level and postoperative muscle weakness. Continue services to address mobility limitations as well as strength and balance impairments. Plan of Care/Treatment Plan: 1-2x/day, 7 days/week x 1 week. Plan of care has been reviewed with the WAITER/WAITRESS HEAD providing the service under Physical Therapy direction. Initiate Physical Therapy intervention for pain management as needed, strengthening, bed mobility, transfers, gait, stairs, balance training, and use of assistive device. DISCHARGE RECOMMENDATIONS: [] Home with no services [] [] Home with services [specify] [] Home with outpatient PT [] [] SNF for continued rehabilitation [] [] Liquor Bridge Operator Helper Care [] [] SNF versus LTC based on ability to participate and progress [] [X] OP PT for continued post BOBBY rehab whne cleared by orthopedic surgeon TREATMENT CODE/TIME: 89709 x 28minutes for 2 units (11:22-11:51).
--- NOTE | 2024-06-30 12:26 | NUR.NOTE ---
Nursing Note:Checked on patient at 12:22. Assessed pain level which she stated was at a 5 on a 0-10 scale. In her words a 5 is better than usual. Denied needing the hyrdromorphone at this time.
--- NOTE | 2024-06-30 14:05 | NUR.NOTE ---
Nursing Note: Documentation by Rodolfo Medina, chief nursing officer reviewed and in agreement.
[2024-06-30] MEDS: cefTRIAXone 2 GM/50 ML BAG IVPB (14:26)
[2024-06-30 15:25] VITALS: BP 104/58; PULSE 82; RESP 15; TEMP 36.6; O2SAT 96
[2024-06-30] MEDS: Atorvastatin 40 MG TAB 80 MG PO (19:45)
[2024-06-30] MEDS: traZODone 50 MG TAB 150 MG PO (19:46)
[2024-06-30 19:53] VITALS: BP 104/57; PULSE 72; RESP 18; TEMP 36; O2SAT 96
[2024-06-30] MEDS: Patch Removal 1 EACH TP (20:41)
--- NOTE | 2024-07-01 | DI.RAD_ITS ---
Exam(s) XR PORTABLE CHEST AP POST LINE EXAM: XR PORTABLE CHEST AP POST LINE CLINICAL HISTORY: left PICC placement TECHNIQUE: 2D digital imaging was performed of the chest. One image was obtained. An AP view was ob tained. COMPARISON: CT CT CHEST LUNG CANCER SCREEN from 05/04/2022 FINDINGS: MEDIASTINUM: Normal. HEART: Normal. PULMONARY VASCULATURE: Normal. LUNGS: The lungs are hyperexpanded. No focal consolidating infiltrates are present. PLEURAL SPACE: No pleural effusion or pneumothorax. BONE:Within normal limits for the patient's age. OTHER FINDINGS:There is a left PICC line in place. The tip of the catheter is in good position near the junction of the superior vena cava and the right atrium. IMPRESSION: 1. No acute pulmonary findings. 2. There is a left PICC line in place. The tip of the catheter is in good position near the junction of the superior vena cava and right atrium. DATA REPOSITORY: RADIATION DOSE DELIVERED:
[2024-07-01] MEDS: HYDROmorphone 4 MG TAB PO ×4 (06:17→19:46)
[2024-07-01] MEDS: Levothyroxine 50 MCG TAB PO (06:17)
[2024-07-01] MEDS: Lidocaine 5% Patch 1 PATCH TP (08:21)
[2024-07-01] MEDS: Acetaminophen 325 MG TAB 650 MG PO ×4 (08:22→19:48)
[2024-07-01] MEDS: Aspirin E.C. 81 MG TABEC PO (08:22)
[2024-07-01] MEDS: Enoxaparin 30 MG/0.3 ML SYR SC ×2 (08:22→22:18)
[2024-07-01] MEDS: Polyethylene Glycol 3350 17 GM PACKET PO (08:22)
[2024-07-01] MEDS: diazePAM 5 MG TAB PO ×3 (08:24→22:17)
--- NOTE | 2024-07-01 10:29 | PT.INTREAT ---
PT Notes Visit Reasons: Osteomyelitis Left Hip Physical Therapy Inpatient Swing Bed Level I Treatment Note Date: 07/01/2024 Precautions: Per [facility] orthopedics as of 06/03/2024, observe posterior hip precautions. WBAT on the L LE with AD. Subjective: Libia declines PT on initial approach today. Set time for check in later, at which point she is agreeable to walking. Objective: General Observation: Intermittently agitated. Declines alteration or advancement of exercises. Requires increased time to perform all activities, with efforts to allow for self-direction for improved participation. Mental Status: Alert and oriented as to person, place, time, and purpose. Pain: 6-7/10 L hip area with movement Vital Signs: Closely monitored by nursing staff Bed Mobility/Transfers: Minimal cueing provided for use of B hands as needed for support, movement sequence, AD management, and posture to reduce fall risk and minimize pain report Rolling independent Supine to sit: independent Sit to supine: independent Sit to stand: stand by assist with FWW Stand to sit: stand by assist with FWW Gait: Ambulates using FWW, step through gait pattern, mild antalgic gait, which increases with distance, stand by assist. Complained of pain worsening and sensation of burning happening in L hip and thigh tat subsided with seated rest. Minimal verbal cueing only for more efficient gait pattern: symmetric step length and height. Encouraged to utilize FWW for support to offload weight bearing to left hip. Tolerates 250'x1, 50'x1. THERA EX: Attempted LAQ, standing HR with UE support to FWW, which patient declines. Review hip precautions; patient prefers to lie on right side, with hip flexed to 70* and internally rotated; offered pillow between knees, and educated on avoidance of combined flexion and IR. Patient declines pillow. Balance: Static Sitting: Normal Dynamic Sitting: Good Static Standing: Fair Dynamic Standing: Fair Assessment: Pain and fatigue limited activity tolerance and safe gait performance. Patient continues to demonstrate increased fall risk and functional mobility dependence due to pain level and postoperative muscle weakness. Continue services to address mobility limitations as well as strength and balance impairments. Plan of Care/Treatment Plan: 1-2x/day, 7 days/week x 1 week. Plan of care has been reviewed with the MEDIA ANALYST providing the service under Physical Therapy direction. Initiate Physical Therapy intervention for pain management as needed, strengthening, bed mobility, transfers, gait, stairs, balance training, and use of assistive device. DISCHARGE RECOMMENDATIONS: [] Home with no services [] [] Home with services [specify] [] Home with outpatient PT [] [] SNF for continued rehabilitation [] [] Riding Instructor Care [] [] SNF versus LTC based on ability to participate and progress [] [X] OP PT for continued post BOBBY rehab whne cleared by orthopedic surgeon TREATMENT CODE/TIME: 17680 x 3 45minutes for 3 units (8055-1827).
[2024-07-01 12:53] VITALS: BP 117/58; PULSE 78; RESP 16; TEMP 36.9; O2SAT 98
--- NOTE | 2024-07-01 13:31 | CE_ITS ---
Date of service: 07/01/24 Time of Service: 13:31 Event Note: -Patient with multiple complaint re: care - reporting ceftriaxone due at 15:00 given at , which does not correlate to documentation Refusing PT this AM at 0830- -Will try daily Ketorolac prior to PT in addition to pain management interventions already planned prior to physical therapy- Discussed this with Radha from PT today -PPI added while on this trial -Proceeding cautiously with NSAID's d/t Hx -Pain at PICC site with + blood return, no swelling/redness and stable measurement reported by RN-this explained to patient -Patient proceeded to scream curse words about the care, not been listened to and then took her gripping-extension device, clicked and twisted it then threw it in the room. Made aware that this was not acceptable and a non-productive display of excessive force VS ineffective intimidation purpose. -Stating that she knew how the care should be d/t to [place] [facility] [place], reminded that she was transferred from [facility] and our awareness of the length of stay and that she should not be screaming at the staff as we are doing our best to provide safe and effective care; and that her vitals signs were stable w no sings of infections. -Stating that her IQ is 128 and that she should not be talked to like she was stupid with repeating everything she says; information given to patient that this was done to ensure the we understood her concerns by using close loop communication to ensure clear communication. Stated that I was sorry if the patient fell bad when we use this process. -Stating that she has been asking for a suppository for 3 days that have not been provided. Patient made aware that an order of PRN daily suppository will be entered; the patient has been refusing oral bowel management medicines. Patient felt that she should have recorded the conversation and told that it would have been ok for her to do so. Patient made aware to communicate further needs to RN and we will try to assist while maintaining her safety. Discussed with Dr. Rangel Time Spent with Patient Time spent in critical care(minutes): 0 Time Spent Included: Other
[2024-07-01] MEDS: cefTRIAXone 2 GM/50 ML BAG IVPB (13:41)
[2024-07-01] MEDS: Ketorolac 15 MG/ML VIAL IVP (15:07)
[2024-07-01] MEDS: Pantoprazole 40 MG TABCR PO (15:07)
[2024-07-01 19:31] VITALS: BP 167/78; PULSE 98; RESP 18; TEMP 36.9; O2SAT 97
[2024-07-01] MEDS: Atorvastatin 40 MG TAB 80 MG PO (19:47)
[2024-07-01] MEDS: traZODone 50 MG TAB 150 MG PO (19:47)
[2024-07-01] MEDS: Propranolol 60 MG CAPCR PO (19:48)
[2024-07-01] MEDS: Sennosides/Docusate Sodium TAB 2 TAB PO (19:48)
[2024-07-01] MEDS: Normal Saline Flush 10 ML SYR IVP (19:49)
--- NOTE | 2024-07-01 21:14 | NUR.NOTE ---
presented to room 215 for consultation on pt s picc line, cxr report done today indicated line in good position. left upper arm picc line dressing clean dry intact with clear chg dressing in place. no redness or tendeness noted at the sit. picc line gives a brisk blood return and easy flush and pt denies pain or discomfort with push pause technique . left arm with good circulation sensation movement and temperature. pt pleasant and thankful for the reassurance. charge nurse informed and is aware that the picc line in good working order.
[2024-07-01] MEDS: Patch Removal 1 EACH TP (22:41)
[2024-07-02] MEDS: HYDROmorphone 4 MG TAB PO ×3 (03:07→12:07)
[2024-07-02] MEDS: Levothyroxine 50 MCG TAB PO (05:23)
[2024-07-02] MEDS: diazePAM 5 MG TAB PO ×2 (05:24→14:37)
[2024-07-02] MEDS: Lidocaine 5% Patch 1 PATCH TP (07:43)
[2024-07-02] MEDS: Polyethylene Glycol 3350 17 GM PACKET PO (07:43)
[2024-07-02] MEDS: Aspirin E.C. 81 MG TABEC PO (07:43)
[2024-07-02] MEDS: Pantoprazole 40 MG TABCR PO (07:43)
[2024-07-02] MEDS: Sennosides/Docusate Sodium TAB 2 TAB PO ×2 (07:43→20:18)
[2024-07-02 08:00] VITALS: BP 106/64; PULSE 66; RESP 16; TEMP 36.6; O2SAT 98
[2024-07-02] MEDS: Acetaminophen 325 MG TAB 650 MG PO ×3 (09:12→20:19)
[2024-07-02] MEDS: Enoxaparin 30 MG/0.3 ML SYR SC ×2 (09:13→20:20)
[2024-07-02] MEDS: Normal Saline Flush 10 ML SYR IVP (09:21)
[2024-07-02] MEDS: Ketorolac 15 MG/ML VIAL IVP (09:54)
--- NOTE | 2024-07-02 10:54 | PT.INTREAT ---
PT Notes Visit Reasons: Osteomyelitis Left Hip Physical Therapy Inpatient Swing Bed Level I Treatment Note Date: 07/02/2024 Precautions: Per [facility] orthopedics as of 06/03/2024, observe posterior hip precautions. WBAT on the L LE with AD. Subjective: Libia received ketorolac 30 minutes prior to PT session today. States that her pain is much better managed, and that yesterday was a terrible day. She's anxious to walk today. Objective: General Observation: Resting in bed, listening to music. Mental Status: Alert and oriented as to person, place, time, and purpose. Pain: 0/10 at rest. Increasing discomfort with ambulation, but manageable. Vital Signs: Closely monitored by nursing staff Bed Mobility/Transfers: Minimal cueing provided for use of B hands as needed for support, movement sequence, AD management, and posture to reduce fall risk and minimize pain report Rolling independent Supine to sit: independent Sit to supine: independent Sit to stand: supervision with FWW Stand to sit: supervision with FWW Gait: Ambulates using FWW, supervision only, step through gait pattern, non-antalgic gait initially, although mild antalgia with distance. Encourage use of UE support to FWW to offload weight bearing to left hip, which patient declines. Tolerates 500' THERA EX: Attempted LAQ, which patient declines, stating she'll do it herself later. Review hip precautions; patient prefers to lie on right side, with hip flexed to 70* and internally rotated; offered pillow between knees, and educated on avoidance of combined flexion and IR. Patient declines pillow. Balance: Static Sitting: Normal Dynamic Sitting: Good Static Standing: good Dynamic Standing: Fair Assessment: Significantly improved pain management and activity tolerance. Ambulating with supervision only today. PT sessions focusing on improving activity tolerance and safety with ambulation, with patient resistant to modification of exercise program. Plan of Care/Treatment Plan: 1-2x/day, 7 days/week x 1 week. Plan of care has been reviewed with the MACHINE TOOL DESIGNER providing the service under Physical Therapy direction. Initiate Physical Therapy intervention for pain management as needed, strengthening, bed mobility, transfers, gait, stairs, balance training, and use of assistive device. DISCHARGE RECOMMENDATIONS: [] Home with no services [] [] Home with services [specify] [] Home with outpatient PT [] [] SNF for continued rehabilitation [] [] Group Home Care [] [] SNF versus LTC based on ability to participate and progress [] [X] OP PT for continued post BOBBY rehab when cleared by orthopedic surgeon TREATMENT CODE/TIME: 33392 x 2 30 minutes(1030 - 1100).
[2024-07-02] MEDS: cefTRIAXone 2 GM/50 ML BAG IVPB (13:56)
[2024-07-02 14:57] VITALS: BP 101/58; PULSE 67; RESP 17; TEMP 37; O2SAT 98
[2024-07-02 20:03] VITALS: BP 118/58; PULSE 68; RESP 19; TEMP 37.1; O2SAT 91
[2024-07-02] MEDS: Propranolol 60 MG CAPCR PO (20:18)
[2024-07-02] MEDS: traZODone 50 MG TAB 150 MG PO (20:18)
[2024-07-02] MEDS: Patch Removal 1 EACH TP (20:20)
[2024-07-02] MEDS: Atorvastatin 40 MG TAB 80 MG PO (20:20)
[2024-07-03] MEDS: diazePAM 5 MG TAB PO ×3 (02:19→15:30)
[2024-07-03] MEDS: HYDROmorphone 4 MG TAB PO ×3 (02:20→13:34)
[2024-07-03] MEDS: Levothyroxine 50 MCG TAB PO (05:14)
[2024-07-03 07:27] VITALS: BP 122/57; PULSE 59; RESP 20; TEMP 36.1; O2SAT 100
[2024-07-03] MEDS: Sennosides/Docusate Sodium TAB 2 TAB PO ×2 (08:16→20:36)
[2024-07-03] MEDS: Aspirin E.C. 81 MG TABEC PO (08:16)
[2024-07-03] MEDS: Lidocaine 5% Patch 1 PATCH TP (08:16)
[2024-07-03] MEDS: Enoxaparin 30 MG/0.3 ML SYR SC ×2 (08:16→20:34)
[2024-07-03] MEDS: Polyethylene Glycol 3350 17 GM PACKET PO (08:16)
[2024-07-03] MEDS: Acetaminophen 325 MG TAB 650 MG PO ×4 (08:17→20:35)
[2024-07-03] MEDS: Pantoprazole 40 MG TABCR PO (08:17)
[2024-07-03] MEDS: Normal Saline Flush 10 ML SYR IVP ×2 (08:19→20:33)
--- NOTE | 2024-07-03 10:21 | PT.INTREAT ---
PT Notes Visit Reasons: Osteomyelitis Left Hip Inpatient Physical Therapy Treatment Note [facility] Date: 07/03/24 SUBJECTIVE: Libia states that she is feeling ok today. She reports that she occasionally gets jabs of pain in hip. Unsure what the cause of them are. The jabs are quick and do not linger. Reports that they tend to go away with change of position. OBJECTIVE: []? PAIN:no pain at beginning of session. jabs of pain in posterior hip post session. VITALS: ?[facility]red by [facility] [place]. Therapeutic Activities ([id number]): Direct one-on-one instruction in dynamic activities to improve functional performance. ? BED MOBILITY/TRANSFERS? Supine-sit: I ? Sit-supine:I? Sit-stand: S ? Stand-sit: S? GAIT? Assistive Device: FWW ? Weight bearing: AT left Assist: S ? Distance:?approx 450'? Deviation: slightly antalgic ? STAIRS:therapeutic steps. ascend/descend 3x4 steps and 2x6 steps. B rails and S/SBA, step to gait pattern.? ASSESSMENT:? tolerated session well. No pain noted during ambulation. No LOB or SOB. She did have pain post session in posterior hip region. Seemed to come in short waves, which dissipated once she sat. PLAN: will continue 1x/day, to work on her functional mobility to tolerance following PT POC. TREATMENT CODE/TIME: 30 min. [id number]
[2024-07-03] MEDS: Glycerin Adult Suppository JAR 1 SUPP PR (11:27)
[2024-07-03] MEDS: cefTRIAXone 2 GM/50 ML BAG IVPB (13:26)
--- NOTE | 2024-07-03 15:33 | PDOC.CMPRO ---
Date of service: 07/03/24 Time of Service: 15:40 Care Management Progress Note Progress Note Text Progress Note Text: Libia was lying in bed when CM arrived. She was willing to engage in conversation, and expressed her concerns with the staff that she had on over the weekend and CM relayed the information to Ольга Marino (patient experience officer) who will follow up with the patient. Discharge Potential Discharge Needs: PCP F/U Appt and Surgical F/U Appt (Ortho ) Anticipated Barriers to Discharge: None Identified Patient/Family Education Needs: Review discharge instructions, discuss Ask Me Three Transportation: Private vehicle Plan: Anticipate that Libia will be discharged and will need to f/u with outpatient PT. Libia will f/u with her PCP and her orthopedic surgeon, and continue per her plan of care. CM will continue to follow. Social Determinants of Health Screening Will the Patient Participate in the Screening?: Declined to provide
[2024-07-03 15:41] VITALS: BP 137/78; PULSE 60; RESP 15; TEMP 36.7; O2SAT 91
[2024-07-03 19:29] VITALS: BP 149/67; PULSE 66; RESP 15; TEMP 36.6; O2SAT 98
[2024-07-03] MEDS: Propranolol 60 MG CAPCR PO (20:36)
[2024-07-03] MEDS: Patch Removal 1 EACH TP (20:36)
[2024-07-03] MEDS: traZODone 50 MG TAB 150 MG PO (20:36)
[2024-07-03] MEDS: Atorvastatin 40 MG TAB 80 MG PO (20:36)
[2024-07-04] MEDS: diazePAM 5 MG TAB PO ×3 (02:34→20:54)
[2024-07-04] MEDS: HYDROmorphone 4 MG TAB PO ×4 (04:03→20:55)
[2024-07-04] MEDS: Levothyroxine 50 MCG TAB PO (04:03)
[2024-07-04 07:43] VITALS: BP 112/76; PULSE 77; RESP 18; TEMP 36.7; O2SAT 97
[2024-07-04] MEDS: Pantoprazole 40 MG TABCR PO (08:45)
[2024-07-04] MEDS: Aspirin E.C. 81 MG TABEC PO (08:45)
[2024-07-04] MEDS: Acetaminophen 325 MG TAB 650 MG PO ×3 (08:47→20:54)
[2024-07-04] MEDS: Sennosides/Docusate Sodium TAB 2 TAB PO (08:49)
[2024-07-04] MEDS: Polyethylene Glycol 3350 17 GM PACKET PO (08:49)
[2024-07-04] MEDS: Lidocaine 5% Patch 1 PATCH TP (08:50)
[2024-07-04] MEDS: Normal Saline Flush 10 ML SYR IVP ×4 (09:27→20:56)
[2024-07-04] MEDS: Ketorolac 15 MG/ML VIAL IVP (10:58)
--- NOTE | 2024-07-04 11:47 | PT.INTREAT ---
PT Notes Visit Reasons: Osteomyelitis Left Hip Physical Therapy Inpatient Swing Bed Level I Treatment Note Date: 07/04/2024 Precautions: [place] [facility] [place], observe posterior hip precautions. WBAT on the L LE with AD. Subjective: Cheerful and motivated to work today. Looking forward to spending time with her daughter this afternoon. Understands the importance of using her FWW when she goes out with family. Objective: General Observation: Patient sitting at edge of bed. Mental Status: Alert and oriented as to person, place, time, and purpose. Able to pay attention, focus, and respond appropriately. Pain: 62-3/10 L hip area with movement Vital Signs: Closely monitored by nursing staff Bed Mobility/Transfers: Minimal cueing provided for use of B hands as needed for support, movement sequence, AD management, and posture to reduce fall risk and minimize pain report Rolling independent Supine to independent Sit to supine independent Sit to stand independent with FWW Stand to sit independent with FWW Bed to toilet seat independent with FWW Toilet seat to bed independent with FWW Bed to reclining chair independent with FWW Gait: Tolerated 300 feet of level surface ambulation using FWW, step through gait pattern albeit steps remain asymmetric, very minimal antalgia seen, supervision only. No path deviation. Much improved directional change. Improved insight to unwanted gait pattern. No report of pain increase thrughout. Balance: Static Sitting: Normal Dynamic Sitting: Good Static Standing: Fair Dynamic Standing: Fair Assessment: Patient may now walk indpenedntly 2-3x/day in the hallway using FWW to increase stability of pains achieved in PT and to improve pain tolerance. Antalgia significantly decreased. Step through gait pattern although steps continue to be asymmetrical. Able to stand more erect without increase in discomfort in the L hip nor thigh. No burning pain reported today. Plan of Care/Treatment Plan: 1x/day, 7 days/week x 1 week. --Progress ambulation skills over different ground surfaces and using least restrictive device as tolerated --Gradual strengthening to B hip and B LE muscles as tolerated while observing posterio hip precuations DISCHARGE RECOMMENDATIONS: [] Home with no services [] [] Home with services [specify] [] Home with outpatient PT [] [] SNF for continued rehabilitation [] [] Long-Term Care [] [] SNF versus LTC based on ability to participate and progress [] [X] OP PT for continued post BOBBY rehab whne cleared by orthopedic surgeon TREATMENT CODE/TIME: 26977 x 28 minutes for 2 units (11:47-12:15).
[2024-07-04] MEDS: cefTRIAXone 2 GM/50 ML BAG IVPB (13:33)
[2024-07-04 15:09] VITALS: BP 110/56; PULSE 73; RESP 18; TEMP 36.5; O2SAT 99
[2024-07-04 20:47] VITALS: BP 136/73; PULSE 76; RESP 20; TEMP 36; O2SAT 98
[2024-07-04] MEDS: Propranolol 60 MG CAPCR PO (20:53)
[2024-07-04] MEDS: traZODone 50 MG TAB 150 MG PO (20:54)
[2024-07-04] MEDS: Atorvastatin 40 MG TAB 80 MG PO (20:55)
[2024-07-04] MEDS: Patch Removal 1 EACH TP (20:56)
[2024-07-05] MEDS: HYDROmorphone 4 MG TAB PO ×4 (06:09→21:58)
[2024-07-05] MEDS: Levothyroxine 50 MCG TAB PO (06:10)
[2024-07-05] MEDS: Pantoprazole 40 MG TABCR PO (06:31)
[2024-07-05 06:48] LABS: ALT 20 U/L (14-59); AST 18 U/L (15-37); Albumin 2.7 g/dL (3.4-5.0); Alkaline Phosphatase 124 U/L (46-116); Anion Gap 7.4 mmol/L (3-11); BUN 24 mg/dL (7-18); Bilirubin, Total 0.2 mg/dL (0.2-1.0); C-Reactive Protein 0.84 mg/dL (<or=0.5); CO2 27.6 mmol/L (21.0-32.0); Calcium 8.9 mg/dL (8.5-10.1); Chloride 107 mmol/L (98-107); Estimated GFR 60.98 (mL/min/1.73m2); Glucose 96 mg/dL (74-106); Potassium 4.8 mmol/L (3.5-5.1); Sodium 142 mmol/L (136-145); Total Protein 6.5 g/dL (6.4-8.2)
[2024-07-05 07:17] VITALS: BP 95/66; PULSE 55; RESP 16; TEMP 36.4; O2SAT 99
[2024-07-05] MEDS: Lidocaine 5% Patch 1 PATCH TP (08:22)
[2024-07-05] MEDS: Aspirin E.C. 81 MG TABEC PO (08:24)
[2024-07-05] MEDS: Acetaminophen 325 MG TAB 650 MG PO ×3 (08:24→21:58)
[2024-07-05] MEDS: Normal Saline Flush 10 ML SYR IVP ×3 (08:25→21:57)
[2024-07-05] MEDS: diazePAM 5 MG TAB PO ×2 (11:11→21:59)
[2024-07-05 11:12] VITALS: BP 110/57; PULSE 58
--- NOTE | 2024-07-05 11:28 | INPN_ITS ---
PT Notes Visit Reasons: Osteomyelitis Left Hip Physical Therapy Inpatient Swing Bed Level I Treatment Note Date: 07/05/2024 Dates of Service:06/28/2024 through 07/05/2024 Precautions: Per [facility] [place] as of 06/03/2024, observe posterior hip precautions. WBAT on the L LE with AD. Subjective: Wanted her Valium prior to today's session. Did not feel like she was going to go far when Pt came back for the session as she has not had her Diluaidi since 6 Am today but patient was surprised to see how much more she was able to do. Concerned about who will transport her to [facility] from [facility] on 07/12/2024 for her appointment. Objective: General Observation: Patient sitting at edge of bed. Mental Status: Alert and oriented as to person, place, time, and purpose. Able to pay attention, focus, and respond appropriately. Pain: 2-3/10 L hip area with movement Vital Signs: Closely monitored by nursing staff Bed Mobility/Transfers: Minimal cueing provided for use of B hands as needed for support, movement sequence, AD management, and posture to reduce fall risk and minimize pain report Rolling independent Supine to independent Sit to supine independent Sit to stand independent with FWW Stand to sit independent with FWW Bed to toilet seat independent with FWW Toilet seat to bed independent with FWW Bed to reclining chair independent with FWW Gait: LUPE Clements updated PT about patient covering 250 feet independently with her walker earlier this morning without any issues. Tolerated another 250 feet of level surface ambulation around the nurses' station using FWW, step through gait pattern albeit steps remain asymmetric, very minimal antalgia seen, supervision only. No path deviation. Much improved directional change. Improved insight to unwanted gait pattern. No report of pain increase thrughout. Balance: Static Sitting: Normal Dynamic Sitting: Good Static Standing: Fair Dynamic Standing: Fair Special Tests: Mobility Limitations Standardized Measure [facility] AM-PAC 6 clicks Basic Mobility Inpatient Short Form: Raw Score: 23 CMS Score: 11% deficit Informed Consent/Education: Patient was instructed in purpose of PT consult and plan of care. Agreeable to proceed with established PT POC to achieve personal goals. Assessment: Despite anxiety over med surg stairwell negotiation with just Valium on board, patient did well without increase in pain report. She was also able to walk another loop on top of her earlier walk this morning. Patient now independent with hallway ambulation using FWW to increase stability of gains achieved in PT and to improve pain tolerance. Antalgia significantly decreased. Step through gait pattern although steps continue to be asymmetrical. Able to stand more erect without increase in discomfort in the L hip nor thigh. No burning pain reported today. Patient presents with clinical signs and symptoms consistent with current/admitting diagnoses that have resulted to mobility limitations, gait instability, generalized weakness, and overall ADL decline as demonstrated by the following impairment level findings: 1. Decreased strength to L hip major muscle groups 2. Impaired sitting/standing balance 3. Impaired activity tolerance 4. Limitation of joint range of motion in L hip flexion and knee extension 5. Shortness of breath 6. Swelling in L thigh due to postoperative status Impairments are contributing to the following functional limitations: 1. Decline in bed mobility skills 2. Decline in transfer skills 3. Difficulty with ambulation without assistive device and physical assistance 4. Increased completion time for mobility ADL performance 5. Increased risk for falls 6. Difficulty with managing steps alone safely Patient is assessed as a 33561 moderate complexity based on the following: History: 69-year-old female with past medical history as indicated above Examination: Demonstrable impairment in strength, balance, and mobility level with underlying impairments and functional limitations as exhibited above as well as deficit score of 11% utilizing the [facility] Mobility Inpatient Short Form Presentation: Evolving Decision Makin moderate complexity Goals: Goals X1 week 1. Supine-Sit independent MET 2. Sit-Supine independent MET 3. Sit-Stand independent MET 4. Stand-Sit independent with SPC NOT MET, CONTINUE 5. Bed-Chair independent with SPC NOT MET, CONTINUE 6. Chair-Bed independent with SPC NOT MET, CONTINUE 7. Independent gait on level surface with use of FWW for at least 300 feet without report of pain nor dyspnea MET 8. Independent stair negotiation while holding onto B rails for at least 3 steps without report of pain nor dyspnea NOT MET, CONTINUE 9. Independent with home exercise program NOT MET, CONTINUE 10. Good static and dynamic standing balance/tolerance NOT MET, CONTINUE Plan of Care/Treatment Plan: 1x/day, 7 days/week x 1 week. --Progress ambulation skills over different ground surfaces using least restrictive device as tolerated --Gradual strengthening to B hip and B LE muscles as tolerated while observing posterio hip precuations DISCHARGE RECOMMENDATIONS: [] Home with no services [] [] Home with services [specify] [] Home with outpatient PT [] [] SNF for continued rehabilitation [] [] Shelter Care [] [] SNF versus LTC based on ability to participate and progress [] [X] OP PT for continued post BOBBY rehab when cleared by orthopedic surgeon to progress mobility level without device TREATMENT CODE/TIME: 40560 x 36 minutes for 2 units (11:28-12:04). Thank you for the opportunity to participate in the care of this patient. Sandra Miranda PT, DPT, CLT [facility] [place], [place]
[2024-07-05] MEDS: cefTRIAXone 2 GM/50 ML BAG IVPB (13:10)
[2024-07-05 15:55] VITALS: BP 103/55; PULSE 60; RESP 16; TEMP 36.8; O2SAT 96
--- NOTE | 2024-07-05 16:54 | CHAPLAIN ---
Libia was resting in bed doing something on her phone when I visited. She remembered that we had met last week. Then she told me that her in-laws ruined God for me so she wasn't interested in a visit. I reminded her that I don't have an agenda and was checking in to say candice. Libia was pleasant but not interested in further conversation.
[2024-07-05 21:43] VITALS: BP 144/53; PULSE 60; RESP 20; TEMP 36.4; O2SAT 98
[2024-07-05] MEDS: Propranolol 60 MG CAPCR PO (21:58)
[2024-07-05] MEDS: Atorvastatin 40 MG TAB 80 MG PO (21:59)
[2024-07-05] MEDS: traZODone 50 MG TAB 150 MG PO (21:59)
[2024-07-05] MEDS: Patch Removal 1 EACH TP (22:00)
[2024-07-06] MEDS: Levothyroxine 50 MCG TAB PO (05:41)
[2024-07-06] MEDS: diazePAM 5 MG TAB PO ×3 (05:41→20:12)
[2024-07-06] MEDS: HYDROmorphone 4 MG TAB PO ×3 (05:41→15:40)
[2024-07-06 07:20] VITALS: BP 103/62; PULSE 64; RESP 15; TEMP 36.6; O2SAT 100
--- NOTE | 2024-07-06 08:00 | DI.CT_ITS ---
Exam(s) CT ABDOMEN PELVIS WO EXAM: CT ABDOMEN PELVIS WO CLINICAL HISTORY: L periformis fluid collection. TECHNIQUE: Imaging Protocol: Axial computed tomography images with coronal and sagittal reformatted images were created and reviewed. COMPARISON: CT CT ABDOMEN PELVIS W from 06/01/2024 MR MR LOWER JOINT LT WO from 06/02/2024 RF RF JOINT INJ. FLUORO GUID RAD from 06/02/2024 FINDINGS: The examination is limited due to patient motion artifact. Lack of IV contrast does limit evaluatio n of the examination. ABDOMEN: Lung Bases: Normal where visualized. Liver: Normal density. No measurable mass. Gallbladder and biliary tract: Gallstones are present. No significant biliary ductal dilatation is s een. Pancreas: Normal density, no abnormal calcifications or inflammatory process. Spleen: Normal. Kidneys: Normal size, contour and axis.No radiodense stones or obstructive uropathy. There is a stabl e simple cyst in the left kidney. No follow-up is recommended. Adrenal glands: No mass is seen. Lymph nodes: Within normal limits. Abdominal Aorta: Abdominal portion non-dilated. Atherosclerotic calcification is present. PELVIS: Bladder:Symmetric distention, no gross wall thickening. Bowel: There is diverticulosis of the colon but no evidence of acute diverticulitis. There is a mode rate amount of stool throughout the colon suggesting constipation. There is no evidence of bowel obs truction or bowel wall thickening. Appendix is unremarkable. Peritoneal cavity: No ascites, collection or mesenteric inflammatory response. No free air. Reproductive organs: Unremarkable as visualized. Bones: Since the prior examination the patient has undergone a left hip replacement. No suspicious l ucencies are seen around the orthopedic hardware. There is some irregularity of the cortex of the sharp perior acetabulum (series 3, image 32). Soft Tissues: No focal fluid collection is seen around the left hip and left pelvis. This is complic ated by the artifact from the patient's left hip prosthesis. There is infiltration of the soft tissu es around the left hip particularly inferior to the humeral head. This may be postsurgical. Evaluat ion is also limited due to lack of IV contrast. IMPRESSION: 1. Interval placement of a left hip replacement. 2. No focal fluid collection is seen on this noncontrast examination. There are infiltrative changes seen in the soft tissues around the left hip and left pelvis. This may be postsurgical. Infection cannot be excluded. 3. Irregularity of the cortex of the superior labrum as described above. This may be rib related to the surgery. Infection cannot be excluded. Please correlate clinically. 4. Cholelithiasis. 5. Constipation. 6. Colonic diverticulosis without evidence of acute diverticulitis. RADIATION DOSE DELIVERED: 430.4mGy.cm Total DLP DATA REPOSITORY: All CT scans at this facility are submitted to the National Radiology Data Registry (NRDR) Dose Index Registry (DIR) with the [employer] (A[employer]). RADIATION OPTIMIZATION: All CT scans at this facility use at least one of these dose optimization te chniques: automated exposure control; mA and/or kV adjustment per patient size (includes targeted exa ms where dose is matched to clinical indication); or iterative reconstruction.
[2024-07-06] MEDS: Lidocaine 5% Patch 1 PATCH TP (08:43)
[2024-07-06] MEDS: Pantoprazole 40 MG TABCR PO (08:44)
[2024-07-06] MEDS: Aspirin E.C. 81 MG TABEC PO (08:44)
[2024-07-06] MEDS: Acetaminophen 325 MG TAB 650 MG PO ×3 (08:44→20:12)
[2024-07-06 08:56] LABS: Abs Immature Grans 0.02 10^3/uL (0.0-0.06); Absolute Basophil Count 0.05 10^3/uL (0.0-0.2); Absolute Lymphocyte Count 1.93 10^3/uL (1.2-3.4); Absolute Monocyte Count 0.59 10^3/uL (0.1-0.8); Absolute Neutrophil Count 2.41 10^3/uL (1.2-6.7); Basophils % 0.9 %; Eosinophils % 10.7 %; HCT 30.3 % (36.0-46.0); HGB 9.3 g/dL (11.2-15.7); Immature Grans % 0.4 %; Lymphocytes % 34.5 %; MCH 28.4 pg (27.0-33.0); MCHC 30.7 % (32.0-36.0); MCV 93 fL (80-95); Monocytes % 10.5 %; Platelet Count 300 10^3/uL (130-400); RBC 3.27 10^6/uL (3.93-5.22); RDW-SD 57.4 fL
[2024-07-06 08:58] LABS: ESR 17 mm/hr (0-30)
[2024-07-06 09:21] LABS: ALT 21 U/L (14-59); AST 16 U/L (15-37); Albumin 2.8 g/dL (3.4-5.0); Alkaline Phosphatase 111 U/L (46-116); Anion Gap 8.1 mmol/L (3-11); BUN 25 mg/dL (7-18); Bilirubin, Total 0.2 mg/dL (0.2-1.0); C-Reactive Protein 0.52 mg/dL (<or=0.5); CO2 28.9 mmol/L (21.0-32.0); Calcium 9.3 mg/dL (8.5-10.1); Chloride 106 mmol/L (98-107); Estimated GFR 60.98 (mL/min/1.73m2); Glucose 94 mg/dL (74-106); Potassium 4.7 mmol/L (3.5-5.1); Sodium 143 mmol/L (136-145); Total Protein 6.5 g/dL (6.4-8.2)
--- NOTE | 2024-07-06 10:03 | NUR.NOTE ---
patient is Axox4 this AM, VSS, pain controlled with use of prn dilaudid and valium. Pending PT this AM and IV toradol prior for pain control. Pt had CT abd/pelvis for monitoring of infectious fluid collection. Ambulates independently with FWW in room and halls, L hip incision is FLOYD and C/D/I, tolerating PO intake, having regular BMs and voiding spontaneously. All other systems intact. PICC single lumen is WNL. Nursing Note:
[2024-07-06] MEDS: Ketorolac 15 MG/ML VIAL IVP (11:21)
--- NOTE | 2024-07-06 11:32 | PTTR_ITS ---
PT Notes Visit Reasons: Osteomyelitis Left Hip Physical Therapy Inpatient Swing Bed Level I Treatment Note Date: 07/06/2024 Precautions: Per [facility] orthopedics as of 06/03/2024, observe posterior hip precautions. WBAT on the L LE with AD. Subjective: R knee acting out since this morning. Patient unsure why this was. Nurse Mo pre- medicated patient with Ketorolac for PT session. Objective: General Observation: Patient sitting at edge of bed. Mental Status: Alert and oriented as to person, place, time, and purpose. Able to pay attention, focus, and respond appropriately. Pain: 4-5/10 L hip area with movement Vital Signs: Closely monitored by nursing staff Bed Mobility/Transfers: Minimal cueing provided for use of B hands as needed for support, movement sequence, AD management, and posture to reduce fall risk and minimize pain report Rolling independent Supine to independent Sit to supine independent Sit to stand independent with FWW Stand to sit independent with FWW Bed to toilet seat independent with FWW Toilet seat to bed independent with FWW Bed to reclining chair independent with FWW Gait: Tolerated another 75 feet to the [facility] stairwell and completed another 250 feet after this activity in [facility]. K knee initially minimally unstable but no LOB as patient is able to safely control rollover of R foot each after each step with FWW. Step through gait pattern albeit steps remain asymmetric, very minimal antalgia seen, supervision only. No path deviation. Much improved directional change. Improved insight to unwanted gait pattern. No report of pain increase throughout. Balance: Static Sitting: Normal Dynamic Sitting: Good Static Standing: Fair Dynamic Standing: Fair Assessment: Educated patient on improved awareness each time she termianlly extnds knee at midstance while ensuring that weight is eaqually distributed over B walker ahndles for safety. No LOB during this session. Typically has been anxious at start of session whether she would do well or not but has performed consistently better each time on level surfaces and on the real stairwell in [facility] unit yesterday and today. She needed moderate cueing for correct movement sequence and on needed weight redistribution using rails to minimize pain report. Gait more antalgic today than yesterday. R knee not as stable as it was yesterday. Patient now independent with hallway ambulation using FWW to increase stability of gains achieved in PT and to improve pain tolerance. Antalgia significantly decreased. Step through gait pattern although steps continue to be asymmetrical. Able to stand more erect without increase in discomfort in the L hip nor thigh. No burning pain reported today. Plan of Care/Treatment Plan: 1x/day, 7 days/week x 1 week. --Progress ambulation skills over different ground surfaces using least restrictive device as tolerated --Gradual strengthening to B hip and B LE muscles as tolerated while observing posterior hip precautions --Stair negotiation progression as tolerated DISCHARGE RECOMMENDATIONS: [] Home with no services [] [] Home with services [specify] [] Home with outpatient PT [] [] SNF for continued rehabilitation [] [] Nursing Home Care [] [] SNF versus LTC based on ability to participate and progress [] [X] OP PT for continued post BOBBY rehab when cleared by orthopedic surgeon to progress mobility level without device TREATMENT CODE/TIME: 99802 x 28 minutes for 2 units (11:32-12:00).
--- NOTE | 2024-07-06 13:00 | CMPROGNOTE_ITS ---
Date of service: 07/06/24 Time of Service: 13:01 Care Management Progress Note Progress Note Text Progress Note Text: Libia was just getting back from working with PT when CM met with her today. She looked steady on her feet, and PT stated that she was doing great, and did some stairs today. Libia stated that she is having some new right knee pain- which is her good leg. Libia feels that her rehab is taking longer than it should, she feels that she should be further along and having less pain. She is worried about taking the trip to [facility] next week, sitting for so long. Libia has 2 appts at [facility] coming up. July 12 at 11:30 with Infectious Disease and July 18 - xray at 2pm (arrive at 1:45) and ortho appt at 2:30. Libia is aware of these appointments, and they have been written down for her. Libia will still be inpatient for her appt on 07/12, and will transport with her daughter to that appointment. Discharge Potential Discharge Needs: PCP F/U Appt, Surgical F/U Appt (Infectious Disease 07/12 at 11:30. Ortho f/u 07/18 - arrive at 1:45 for xray, 2:30 appointment) and Other (out patient PT referral) Anticipated Barriers to Discharge: None Identified Patient/Family Education Needs: Review discharge instructions, discuss Ask Me Three Transportation: Private vehicle Plan: Anticipate that Libia will discharge home with no new services. She will f/u with her PCP, ortho, ID and be referred to outpatient PT. Libia will continue per her plan of care and transport home in a private vehicle. CM will continue to follow. Social Determinants of Health Screening Will the Patient Participate in the Screening?: Declined to provide
[2024-07-06] MEDS: cefTRIAXone 2 GM/50 ML BAG IVPB (14:57)
[2024-07-06 15:06] VITALS: BP 105/60; PULSE 57; RESP 16; TEMP 36.8; O2SAT 99
--- NOTE | 2024-07-06 15:06 | NUR.NOTE ---
patient resting in bed, IV abx infusing, worked with PT this AM, asked about a shower this AM but pt wanted to defer until after PT, reapproached the question this afternoon but patient wanted to eat lunch first and do IV abx. Will ask pt again about hygiene care after abx.Nursing Note:
--- NOTE | 2024-07-06 16:29 | W.PM.PROGNOT ---
Date of Service Date of service: 07/06/24 Time of Service: 16:29 Assessment and Plan Assessment and plan (1) Osteomyelitis: Status: Acute Assessment and plan: Ceftriaxone 2 g IV until 07/15/2024 via PICC line Placemnt verified by XR Continue weekly CBC CMP CRP while on antibiotics CRP < 0.5, 0.8 and 0.52 ID and Orthopedic outpatient follow-up -Infectious Disease July 12 at 11:30 with - Outpatient [facility] orthopedics on 07/18 for x-rays and appt. Xray at 2pm, arrive 1:45, - Visit with orthopedics at 2:30 with repeat x-ray of her left hip Repeat CT abdomen and pelvis in 2 to 3 weeks in early July for piriformis fluid collection to ensure antibiotic effectiveness Impression: 1. Interval placement of a left hip replacement. 2. No focal fluid collection is seen on this noncontrast examination. There are infiltrative changes seen in the soft tissues around the left hip) This may be postsurgical. Infection cannot be excluded. 3. Irregularity of the cortex of the superior labrum as described above. This may be rib related to the surgery. Infection cannot be excluded. Please correlate clinically. 4. Cholelithiasis. 5. Constipation. 6. Colonic diverticulosis without evidence of acute diverticulitis. [facility] ortho consulted : Infiltrates-infection vs post Sx changes -Do we need an XR of the left hip ( not done 07/04)? Continue as needed hydromorphone Continue scheduled acetaminophen, lidocaine patch and as needed Valium 5 mg for muscle spasm Scheduled miralax added to as needed bowel management meds DVT prophylaxis until 07/03 with Lovenox 30MG SC BID (2) Septic arthritis: Status: Acute Assessment and plan: Was positive H. influenza w/o beta-lact. resistance As above (3) Left hip pain: Status: Acute Assessment and plan: As above (4) Endometrial cystic hyperplasia: Status: Acute Assessment and plan: Outpatient: ultrasound and PATIENT INTAKE COORDINATOR referral for incidental findings endometrial thickening and possible cyst recommendation (5) Thrombosis of thoracic aorta: Status: Acute Assessment and plan: 12/2024: Follow-up with vascular surgery for incidental finding of thoracic aortic mural thrombus Continue ASA and statin Discussed with Dr. Negron Subjective Subjective Patient reports: no new complaints, still having pain, tolerating liquids well, tolerating a regular diet and bowel movement; denies voiding w/o difficulty, diarrhea, vomiting, shortness of breath or fever Exam Narrative Exam Narrative: Constitutional The patient is mobilizing LLE adequately, ambulating in rios with PT Neuro:Alert and oriented X4 , no neurological focal deficit Resp: unlabored breathing, clear lung bilaterally Cardio: regular rhythm, S1, S2, no murmur, bilateral radial and dorsalis pedis pulses are positive GI: Abdomen is not distended, soft and non tender, bowel sounds are present Back/spine/Pelvis: No back tenderness, normal alignment Integumentary: Left hip surgical scar DCI Extremities: strength 5/5 to bilateral lower and upper extremities Psych: RASS 0, anxious and tearful mood and affect. Objective Last Vital Signs Temp 36.8 C 07/06/24 15:06 Pulse 57 L 07/06/24 15:06 Resp 16 07/06/24 15:06 BP 105/60 07/06/24 15:06 Pulse Ox 99 07/06/24 15:06 Laboratory Results - last 24 hr 07/06/24 07/06/24 07:00 07:03 WBC 5.60 RBC 3.27 L Hgb 9.3 L Hct 30.3 L MCV 93 MCH 28.4 MCHC 30.7 L RDW 17.0 H Plt Count 300 MPV Immature Gran % 0.4 Neutrophils % 43.0 Lymphocytes % 34.5 Monocytes % 10.5 Eosinophils % 10.7 Basophils % 0.9 Nucleated RBC % 0.0 Absolute Neutrophils 2.41 Absolute Lymphocytes 1.93 Absolute Monocytes 0.59 Absolute Eosinophils 0.60 Absolute Basophils 0.05 ESR 17 Sodium 143 Potassium 4.7 Chloride 106 Carbon Dioxide 28.9 Anion Gap 8.1 BUN 25 H Creatinine 1.0 Est GFR (CKD-EPI 2020) 60.98 Glucose 94 Calcium 9.3 Total Bilirubin 0.2 AST 16 ALT 21 Alkaline Phosphatase 111 C-Reactive Protein 0.52 H Total Protein 6.5 Albumin 2.8 L Time Spent with Patient Time Spent with Patient: >50 minutes Time was spent: preparing to see the patient(eg.review tests), obtaining and/or reviewing separately otained hiistory, ordering medications,tests, procedures, referring, communicating with other health palliative care coordinator, indepentently interpreting results, counseling the patient and care coordination
--- NOTE | 2024-07-06 17:24 | NUR.NOTE ---
patient left unit at 1620 with daughter, signed release form. Agrees to return by end of 1900 shift. Nursing Note:
[2024-07-06] MEDS: traZODone 50 MG TAB 150 MG PO (20:12)
[2024-07-06] MEDS: Atorvastatin 40 MG TAB 80 MG PO (20:12)
[2024-07-06] MEDS: Propranolol 60 MG CAPCR PO (20:12)
[2024-07-06 20:30] VITALS: BP 104/58; PULSE 60; RESP 20; TEMP 36.8; O2SAT 95
[2024-07-06] MEDS: Patch Removal 1 EACH TP (20:45)
[2024-07-07] MEDS: Levothyroxine 50 MCG TAB PO (04:29)
[2024-07-07] MEDS: diazePAM 5 MG TAB PO ×2 (04:29→10:37)
[2024-07-07] MEDS: HYDROmorphone 4 MG TAB PO ×4 (04:30→19:21)
[2024-07-07 07:54] VITALS: BP 111/49; PULSE 62; RESP 16; TEMP 36.5; O2SAT 98
[2024-07-07] MEDS: Acetaminophen 325 MG TAB 650 MG PO ×3 (08:27→20:20)
[2024-07-07] MEDS: Lidocaine 5% Patch 1 PATCH TP (08:27)
[2024-07-07] MEDS: Aspirin E.C. 81 MG TABEC PO (08:28)
[2024-07-07] MEDS: Pantoprazole 40 MG TABCR PO (08:28)
--- NOTE | 2024-07-07 11:26 | PT.INTREAT ---
PT Notes Visit Reasons: Osteomyelitis Left Hip Inpatient Physical Therapy Treatment Note [facility] Date: 07/07/24 SUBJECTIVE: Libia reports that she had a shower this am. No c/o hip pain. Is ready and willing to work with PT. OBJECTIVE: []? VITALS: ?monitored by nsg. Therapeutic Activities (05061o6): Direct one-on-one instruction in dynamic activities to improve functional performance. ? BED MOBILITY/TRANSFERS? Rolling L/R: I Supine-sit: I ? Sit-supine:I? Sit-stand: I? Stand-sit: I? Bed-Chair: I ? Chair-Bed: I? GAIT? Assistive Device: FWW? Weight bearing: WBAT L Assist: S ? Distance:?approx 500' ? Deviation: short strides, decreased heel strike. ? STAIRS:full flight of stairs (13 steps) with SBA, rail on right 1x each ascend/descend. Step to gait pattern.? She also stepped onto scale. 159.6 lbs. She is pleased with the weight gain.? ASSESSMENT:? tolerated session well. No c/o pain. Is independent with transfers and gait. No LOB or fatigue noted today. PLAN: will continue 1x/day per PT TREATMENT CODE/TIME: 25min. [id number]
[2024-07-07] MEDS: cefTRIAXone 2 GM/50 ML BAG IVPB (13:07)
[2024-07-07 19:08] VITALS: BP 140/58; PULSE 65; RESP 20; TEMP 37.4; O2SAT 97
[2024-07-07] MEDS: Patch Removal 1 EACH TP (19:34)
[2024-07-07] MEDS: traZODone 50 MG TAB 150 MG PO (20:21)
[2024-07-07] MEDS: Atorvastatin 40 MG TAB 80 MG PO (20:21)
[2024-07-07] MEDS: Propranolol 60 MG CAPCR PO (20:21)
[2024-07-08] MEDS: diazePAM 5 MG TAB PO (03:12)
[2024-07-08] MEDS: HYDROmorphone 4 MG TAB PO ×5 (05:05→23:45)
[2024-07-08] MEDS: Levothyroxine 50 MCG TAB PO (05:59)
[2024-07-08 07:37] VITALS: BP 104/66; PULSE 82; RESP 16; TEMP 36.1; O2SAT 98
[2024-07-08] MEDS: Acetaminophen 325 MG TAB 650 MG PO ×3 (08:35→16:49)
[2024-07-08] MEDS: Aspirin E.C. 81 MG TABEC PO (08:36)
[2024-07-08] MEDS: Pantoprazole 40 MG TABCR PO (08:36)
[2024-07-08] MEDS: Normal Saline Flush 10 ML SYR IVP (08:37)
[2024-07-08] MEDS: Lidocaine 5% Patch 1 PATCH TP (08:37)
--- NOTE | 2024-07-08 09:56 | PT.INTREAT ---
Date of service: 07/08/24 Time of Service: 09:20 PT Notes Visit Reasons: Osteomyelitis Left Hip SUBJECTIVE: Reports she did not sleep well. Pain 09/14 upon arrival. Concerned about a long day of travel to [facility] on 07/12/24 for her ID appointment. OBJECTIVE:? Per [facility] orthopedics as of 06/03/2024, observe posterior hip precautions. WBAT on the L LE with AD. Left message for RN to medicate for 9:15 am PT time. Upon arrival patient reports she had not been premedicated.Spoke with TARA Haro who assisted with IV meds prior to treatment. Treatment: Reinstructed in posterior hip precautions with cuing 3x to prevent flexion and IR of left hip. I supine to/from sit 2x. I walking with rolling walker to/from bathroom to wash her hands in standing. No loss of balance. 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 Amb 300 feet in hallway with rolling walker s/I with cuing to intermittently work on upright posture with increased step length as tolerated. Up and down flight of stairs with rail cga with cuing prior to descending stairs secondary to almost starting with incorrect foot. Reports she plans to obtain rolling walker, raised toilet seat and tub bench from [facility] prior to discharge. Can have a w/c availabe if needed. Assessment: 69 year old female patient with a past medical history of hypertension, hyperlipidemia, hypothyroidism, PTSD, insomnia, returning from [facility] status post transfer on for left hip septic arthritis osteomyelitis of the left femoral head for ongoing management of with IV ceftriaxone 2 g daily until 07/15/2024. Plan: Continue daily PT Billing Charges: Treatment Units Time Duration Manual Therapy (71539) Hands-on techniques to modulate pain increase joint range of motion reduce or eliminate soft tissue swelling, inflammation, or restriction facilitate relaxation and improve contractile and non-contractile tissue extensibility Therapeutic Procedures (46938) Instruction in therapeutic exercises to develop strength and endurance, range of motion and flexibility. HEP instruction and review: Provided skilled instruction in proper exercise performance: Provided skilled manual cues to facilitate proper muscle recruitment and/or movement?pattern: Neurological Re-Education (26730) to improve balance, coordination, kinesthetic and proprioceptive sensations. Ultrasound (92923) to promote healing Gait Training (36991) Therapeutic Activity (23103) instruction in dynamic activities with one on one patient contact by the provider to improve functional performance as follows: 3 40 Self Care Training (80442) Time Coded Treatment Minutes: Total Treatment Time:
[2024-07-08] MEDS: cefTRIAXone 2 GM/50 ML BAG IVPB (14:11)
[2024-07-08 15:51] VITALS: BP 109/58; PULSE 56; RESP 16; TEMP 37.1; O2SAT 97
[2024-07-08 19:53] VITALS: BP 153/70; PULSE 60; RESP 18; TEMP 36.5; O2SAT 97
[2024-07-08] MEDS: Propranolol 60 MG CAPCR PO (20:10)
[2024-07-08] MEDS: Atorvastatin 40 MG TAB 80 MG PO (20:10)
[2024-07-08] MEDS: traZODone 50 MG TAB 150 MG PO (20:10)
[2024-07-08] MEDS: Patch Removal 1 EACH TP (20:30)
[2024-07-09 04:27] VITALS: BP 116/71; PULSE 51; RESP 18; TEMP 36.3; O2SAT 99
[2024-07-09] MEDS: HYDROmorphone 4 MG TAB PO ×4 (04:45→20:03)
[2024-07-09] MEDS: Levothyroxine 50 MCG TAB PO (05:47)
[2024-07-09 07:47] VITALS: BP 97/50; PULSE 53; RESP 16; TEMP 36.5; O2SAT 99
[2024-07-09] MEDS: Lidocaine 5% Patch 1 PATCH TP (09:13)
[2024-07-09] MEDS: Polyethylene Glycol 3350 17 GM PACKET PO (09:14)
[2024-07-09] MEDS: Sennosides/Docusate Sodium TAB 2 TAB PO (09:15)
[2024-07-09] MEDS: Aspirin E.C. 81 MG TABEC PO (09:15)
[2024-07-09] MEDS: Acetaminophen 325 MG TAB 650 MG PO ×4 (09:15→20:03)
[2024-07-09] MEDS: Pantoprazole 40 MG TABCR PO (09:15)
--- NOTE | 2024-07-09 10:32 | PT.INTREAT ---
Date of service: 07/09/24 Time of Service: 10:20 PT Notes Visit Reasons: Osteomyelitis Left Hip SUBJECTIVE: Reports she has increased pain today in her left hip and bilateral shoulders. OBJECTIVE:? Per [facility] [place]ics as of 06/03/2024, observe posterior hip precautions. WBAT on the L LE with AD. Left message for RN to medicate for 9:00 to 9:15 am PT time. Upon arrival, RN present and giving medication. Patient reports she was not able to have the valium secondary to her BP and HR being low. returned to see patient later to allow time for medication. 747 by nursin/50 53 BPM at rest upon arrival for session sittin/73 58 BPM 97% standin/58 64 bpm, 98% after ambulation: 129/64 63 bpm 98% No dizziness during today's session. Treatment: Reinstructed in posterior hip precautions with cuing 3x to prevent flexion and IR of left hip. I supine to/from sit 2x. Amb 300 feet in hallway with rolling walker s/I with cuing to intermittently work on upright posture as able with increased step length as tolerated. Assessment: 69 year old female patient with a past medical history of hypertension, hyperlipidemia, hypothyroidism, PTSD, insomnia, returning from [facility] [place] post transfer for left hip septic arthritis osteomyelitis of the left femoral head for ongoing management of with IV ceftriaxone 2 g daily until 07/15/2024. Increased pain today secondary to decreased medication secondary to low BP and HR. Plan: Continue daily PT Billing Charges: Treatment Units Time Duration Manual Therapy (67068) Hands-on techniques to modulate pain increase joint range of motion reduce or eliminate soft tissue swelling, inflammation, or restriction facilitate relaxation and improve contractile and non-contractile tissue extensibility Therapeutic Procedures (19272) Instruction in therapeutic exercises to develop strength and endurance, range of motion and flexibility. HEP instruction and review: Provided skilled instruction in proper exercise performance: Provided skilled manual cues to facilitate proper muscle recruitment and/or movement?pattern: Neurological Re-Education (71010) to improve balance, coordination, kinesthetic and proprioceptive sensations. Ultrasound (15359) to promote healing Gait Training (39301) Therapeutic Activity (78254) instruction in dynamic activities with one on one patient contact by the provider to improve functional performance as follows: 1 15 Self Care Training (33835) Time Coded Treatment Minutes: 15 Total Treatment Time: 15
[2024-07-09] MEDS: cefTRIAXone 2 GM/50 ML BAG IVPB (13:41)
[2024-07-09 15:50] VITALS: BP 135/90; PULSE 60
[2024-07-09] MEDS: Atorvastatin 40 MG TAB 80 MG PO (20:02)
[2024-07-09] MEDS: traZODone 50 MG TAB 150 MG PO (20:02)
[2024-07-09] MEDS: Propranolol 60 MG CAPCR PO (20:03)
[2024-07-09 20:07] VITALS: BP 122/46; PULSE 62; RESP 20; TEMP 36.4; O2SAT 99
[2024-07-09] MEDS: Patch Removal 1 EACH TP (20:09)
[2024-07-10] MEDS: HYDROmorphone 4 MG TAB PO ×4 (02:44→20:09)
[2024-07-10] MEDS: diazePAM 5 MG TAB PO ×2 (02:44→11:28)
[2024-07-10] MEDS: Levothyroxine 50 MCG TAB PO (06:17)
[2024-07-10 07:10] VITALS: BP 122/67; PULSE 53; RESP 20; TEMP 36.5; O2SAT 99
[2024-07-10] MEDS: Lidocaine 5% Patch 1 PATCH TP (07:52)
[2024-07-10] MEDS: Aspirin E.C. 81 MG TABEC PO (07:53)
[2024-07-10] MEDS: Sennosides/Docusate Sodium TAB 2 TAB PO (07:53)
[2024-07-10] MEDS: Acetaminophen 325 MG TAB 650 MG PO ×4 (07:53→20:10)
[2024-07-10] MEDS: Polyethylene Glycol 3350 17 GM PACKET PO (07:53)
--- NOTE | 2024-07-10 12:41 | CMPROGNOTE_ITS ---
Date of service: 07/10/24 Time of Service: 12:41 Care Management Progress Note Progress Note Text Progress Note Text: Libia was lying in the bed, talking with PT, when CM met with her today. She was pleasant with CM, and stated that she is going out this afternoon with her daughter. After talking with staff, CM asked Libia if she would like to be discharged and continue to come to the hospital daily for her antibiotics. Libia declined this offer. She is still struggling getting in and out of vehicles, and does not feel safe taking the [facility] bus alone. She would prefer to complete her abx while remaining in the Swing Bed. This was passed on to the pr ovider. No changes made in plan of care. Discharge Potential Discharge Needs: PCP F/U Appt, Surgical F/U Appt (Infectious Disease 07/12 at 11:30. Ortho f/u 07/18 - arrive at 1:45 for xray, 2:30 appointment).) and Other Anticipated Barriers to Discharge: None Identified Patient/Family Education Needs: Review discharge instructions, discuss Ask Me Three Transportation: Private vehicle Plan: Anticipate that Libia will discharge home with new PT for a safety evaluation in her apartment, per PT recommendations. She will f/u with her PCP, ortho, and ID. Libia will continue per her plan of care and transport home in a private vehicle. CM will continue to follow. Social Determinants of Health Screening Will the Patient Participate in the Screening?: Declined to provide
[2024-07-10] MEDS: cefTRIAXone 2 GM/50 ML BAG IVPB (14:05)
--- NOTE | 2024-07-10 14:50 | PTTR_ITS ---
PT Notes Visit Reasons: Osteomyelitis Left Hip Physical Therapy Inpatient Swing Bed Level I Treatment Note Date: 07/10/2024 Precautions: Per [facility] orthopedics as of 06/03/2024, observe posterior hip precautions. WBAT on the L LE with AD. Subjective: Looking forward to appointment on 07/12/2024 with [facility] at [facility]. She preferred to ride with daughter in her car instead of through [facility]. CM Pat offerred the option of going home and coming in here daily for abx infusions but patient said that she will not have anybody who can bring her in that often; chose to stay here until potential D/C date of 07/15/24. remains anxious about walling and getting ut of bed without her Valium and her pain medication. Objective: General Observation: Patient resting in bed. Mental Status: Alert and oriented as to person, place, time, and purpose. Able to pay attention, focus, and respond appropriately. Pain: 2-3/10 L hip area with movement Vital Signs: Closely monitored by nursing staff Bed Mobility/Transfers: Minimal cueing provided for use of B hands as needed for support, movement sequence, AD management, and posture to reduce fall risk and minimize pain report Rolling independent Supine to independent Sit to supine independent Sit to stand independent with FWW Stand to sit independent with FWW Bed to toilet seat independent with FWW Toilet seat to bed independent with FWW Bed to reclining chair independent with FWW Gait: Patient has been navigating med [employer] hallway on her own with FWW for up to 300 feet since last week with no issues encountered. Today walking was deferred as patient's daughter was on her way to pick patient up for an outdoor visit and time together. Balance: Static Sitting: Normal Dynamic Sitting: Good Static Standing: Fair Dynamic Standing: Fair Assessment: Limited by anxiety over how she will do overall despite the fact that she has been made independent in room and hallway using her FWW since last week. Has felt more confident when she has had her Valium and her pain medication before she moves. Infectious Disease follow up at [facility] tomorrow, 07/12/2024 to determine need for continuation of antibiotic treatment or not. Potential discharge on 02/14/2025. Follow up with orthopedics on 07/18/2024. Will need PT referral to ensure that needed environmental modifications and training in complaince with posterior hip precautions. Plan of Care/Treatment Plan: 1x/day, 7 days/week x 1 week. --Progress ambulation skills over different ground surfaces using least restrictive device as tolerated --Gradual strengthening to B hip and B LE muscles as tolerated while observing posterior hip precautions --Stair negotiation progression as tolerated DISCHARGE RECOMMENDATIONS: [] Home with no services [] [X] Home with services. PT to ensure that environmental recommendations are done in compliance with posterior hip precautions. [] Home with outpatient PT [] [] SNF for continued rehabilitation [] [] Admissions Supervisor Care [] [] SNF versus LTC based on ability to participate and progress [] TREATMENT CODE/TIME: 68991 x 25 minutes for 2 units (02:50-15:15).
[2024-07-10 15:30] VITALS: BP 119/72; PULSE 69; RESP 20; TEMP 36; O2SAT 100
[2024-07-10] MEDS: Patch Removal 1 EACH TP (20:10)
[2024-07-10] MEDS: Atorvastatin 40 MG TAB 80 MG PO (20:10)
[2024-07-10] MEDS: Propranolol 60 MG CAPCR PO (20:11)
[2024-07-10] MEDS: Normal Saline Flush 10 ML SYR IVP (20:12)
[2024-07-10] MEDS: traZODone 50 MG TAB 150 MG PO (20:19)
[2024-07-10 22:31] VITALS: BP 95/45; PULSE 72; RESP 20; TEMP 36.2; O2SAT 97
[2024-07-11 03:39] VITALS: BP 109/49; PULSE 59; RESP 20; TEMP 36.1; O2SAT 97
[2024-07-11] MEDS: HYDROmorphone 4 MG TAB PO ×5 (03:45→23:55)
[2024-07-11] MEDS: Levothyroxine 50 MCG TAB PO (06:32)
[2024-07-11 08:10] VITALS: BP 96/59; PULSE 61; RESP 14; TEMP 36.9; O2SAT 97
[2024-07-11] MEDS: Sennosides/Docusate Sodium TAB 2 TAB PO (09:03)
[2024-07-11] MEDS: Aspirin E.C. 81 MG TABEC PO (09:03)
[2024-07-11] MEDS: Pantoprazole 40 MG TABCR PO (09:04)
[2024-07-11] MEDS: Polyethylene Glycol 3350 17 GM PACKET PO (09:04)
[2024-07-11] MEDS: Acetaminophen 325 MG TAB 650 MG PO ×4 (09:04→20:41)
[2024-07-11] MEDS: Lidocaine 5% Patch 1 PATCH TP (09:04)
[2024-07-11] MEDS: diazePAM 5 MG TAB PO ×2 (11:42→23:55)
[2024-07-11] MEDS: cefTRIAXone 2 GM/50 ML BAG IVPB (13:49)
[2024-07-11] MEDS: Normal Saline Flush 10 ML SYR IVP ×2 (13:50→20:42)
[2024-07-11 15:28] VITALS: BP 131/81; PULSE 64; RESP 18; TEMP 36.5; O2SAT 100
--- NOTE | 2024-07-11 16:17 | PDOC.CMPRO ---
Date of service: 07/11/24 Time of Service: 16:17 Care Management Progress Note Progress Note Text Progress Note Text: Libia was lying in the bed, with the room darkened, when CM met with her today. She asked about having a home health aide when she is discharged. CM informed her that aides are not really available unless hired independently. Libia stated that she still can't get her stockings on and is worried about her self care needs at home. She was weepy and feeling defeated. Support and active listening were offered. CM offered her an OT consult, and this was placed. Will also offer PT/OT via HH when discharged, as Libia is not quite ready for outpatient therapy. Libia will transport to her ID appt. at [facility] with her daughter. Discharge Potential Discharge Needs: PCP F/U Appt, Surgical F/U Appt and Other (Infectious Disease 07/12 at 11:30. Ortho f/u 07/18 - arrive at 1:45 for xray, 2:30 appointment)) Anticipated Barriers to Discharge: None Identified Patient/Family Education Needs: Review discharge instructions, discuss Ask Me Three Transportation: Private vehicle Plan: Anticipate that Libia will discharge home with new HH PT and OT for a safety evaluation in her apartment, per PT recommendations. She will f/u with her PCP, ortho, and ID. Libia will continue per her plan of care and transport home in a private vehicle. CM will continue to follow. Social Determinants of Health Screening Will the Patient Participate in the Screening?: Declined to provide Anticipated HH Services Anticipated HH Services at Discharge [facility] Needed, OT and PT Anticipated Date of Discharge: 07/15/24. Following Provider: Bo Guzman.
[2024-07-11] MEDS: Patch Removal 1 EACH TP (20:40)
[2024-07-11] MEDS: Propranolol 60 MG CAPCR PO (20:40)
[2024-07-11] MEDS: Atorvastatin 40 MG TAB 80 MG PO (20:41)
[2024-07-11] MEDS: traZODone 50 MG TAB 150 MG PO (20:41)
[2024-07-11 23:54] VITALS: BP 130/68; PULSE 66; RESP 16; TEMP 36.8; O2SAT 95
[2024-07-12] MEDS: Levothyroxine 50 MCG TAB PO (06:11)
[2024-07-12 08:03] VITALS: BP 123/68; PULSE 65; RESP 16; TEMP 36; O2SAT 98
--- NOTE | 2024-07-12 08:47 | NUR.NOTE ---
Nursing Note: Pt has been screaming in her room d/t wanting more valium and pain meds. RN assigned to her is working on her orders, pt notified of this. Pt carefully tries to get staff to make promises to her about medications. Advised pt that there are protocols and orders to follow, she wants all of those described to her by everyone that goes in to the room, every time. Spoke to CM, who has already been in to see her this morning. Pt needs boundaries and limits to be followed by staff consistently.
[2024-07-12] MEDS: diazePAM 5 MG TAB PO (08:57)
[2024-07-12] MEDS: HYDROmorphone 4 MG TAB PO (08:57)
[2024-07-12] MEDS: Pantoprazole 40 MG TABCR PO (09:00)
[2024-07-12] MEDS: Aspirin E.C. 81 MG TABEC PO (09:04)
[2024-07-12] MEDS: Lidocaine 5% Patch 1 PATCH TP (09:04)
[2024-07-12] MEDS: Normal Saline Flush 10 ML SYR IVP ×3 (09:05→20:04)
[2024-07-12] MEDS: Acetaminophen 325 MG TAB 650 MG PO ×3 (09:06→20:03)
--- NOTE | 2024-07-12 15:39 | NUR.NOTE ---
Nursing Note: RN attempted to call pt at this time to check in/remind pt of overdue abx. Pt did not answer, mailbox full and RN unable to leave message.
[2024-07-12] MEDS: cefTRIAXone 2 GM/50 ML BAG IVPB (17:30)
--- NOTE | 2024-07-12 17:51 | NUR.NOTE ---
Nursing Note: Pt returned from [facility] appts. Reported that she did not realize how addicted she had become to pain medication, and that her provider at [facility] stated she should be off those medications by now. Pt stated she intended to reduce her use of them moving forward.
[2024-07-12 19:55] VITALS: BP 130/64; PULSE 73; RESP 19; TEMP 36.8; O2SAT 95
[2024-07-12] MEDS: Atorvastatin 40 MG TAB 80 MG PO (20:03)
[2024-07-12] MEDS: Propranolol 60 MG CAPCR PO (20:03)
[2024-07-12] MEDS: traZODone 50 MG TAB 150 MG PO (20:03)
[2024-07-12] MEDS: Patch Removal 1 EACH TP (20:05)
[2024-07-13] MEDS: diazePAM 5 MG TAB PO ×3 (05:11→19:50)
[2024-07-13] MEDS: Levothyroxine 50 MCG TAB PO (05:11)
--- NOTE | 2024-07-13 05:15 | NUR.NOTE ---
Nursing Note: Pt told this nurse about 0430 that her muscle pain is becoming intolerable and feels like she is locking up. Pt requested valium at this time. Pt has not had any other prn pain medications on this shift. Pt stated that obviously other than being addicted she feels as though the muscle pain and locking up in her left hip and bottom from lack of ability to reposition. Pt states she has been up since around 0200 and has been trying not to ask for medication.
[2024-07-13 06:06] LABS: Abs Immature Grans 0.02 10^3/uL (0.0-0.06); Absolute Basophil Count 0.02 10^3/uL (0.0-0.2); Absolute Eosinophil Count 0.02 10^3/uL (0.0-0.7); Absolute Lymphocyte Count 1.99 10^3/uL (1.2-3.4); Absolute Monocyte Count 0.75 10^3/uL (0.1-0.8); Absolute Neutrophil Count 6.76 10^3/uL (1.2-6.7); Basophils % 0.2 %; Eosinophils % 0.2 %; HCT 39.3 % (36.0-46.0); HGB 13.4 g/dL (11.2-15.7); Immature Grans % 0.2 %; Lymphocytes % 20.8 %; MCH 31.4 pg (27.0-33.0); MCHC 34.1 % (32.0-36.0); MCV 92 fL (80-95); MPV 9.6 fL (8.0-11.0); Monocytes % 7.8 %; Neutrophils % 70.8 %; Platelet Count 207 10^3/uL (130-400); RBC 4.27 10^6/uL (3.93-5.22); RDW 14.2 % (11.7-14.6); RDW-SD 47.7 fL; WBC 9.56 10^3/uL (4.4-10.8)
[2024-07-13 06:28] LABS: ALT 16 U/L (14-59); AST 13 U/L (15-37); Albumin 3.3 g/dL (3.4-5.0); Alkaline Phosphatase 102 U/L (46-116); Anion Gap 7.2 mmol/L (3-11); BUN 19 mg/dL (7-18); Bilirubin, Total 0.3 mg/dL (0.2-1.0); C-Reactive Protein < 0.50 mg/dL (<or=0.5); CO2 28.8 mmol/L (21.0-32.0); Calcium 9.6 mg/dL (8.5-10.1); Chloride 104 mmol/L (98-107); Estimated GFR 60.98 (mL/min/1.73m2); Glucose 127 mg/dL (74-106); Potassium 3.8 mmol/L (3.5-5.1); Sodium 140 mmol/L (136-145); Total Protein 7.1 g/dL (6.4-8.2)
[2024-07-13 07:37] VITALS: BP 116/53; PULSE 61; RESP 18; TEMP 36.5; O2SAT 98
[2024-07-13] MEDS: Polyethylene Glycol 3350 17 GM PACKET PO (08:01)
[2024-07-13] MEDS: Lidocaine 5% Patch 1 PATCH TP (08:02)
[2024-07-13] MEDS: Sennosides/Docusate Sodium TAB 2 TAB PO (08:02)
[2024-07-13] MEDS: Aspirin E.C. 81 MG TABEC PO (08:02)
[2024-07-13] MEDS: Pantoprazole 40 MG TABCR PO (08:02)
[2024-07-13] MEDS: Acetaminophen 325 MG TAB 650 MG PO ×3 (08:02→15:53)
[2024-07-13] MEDS: Normal Saline Flush 10 ML SYR IVP ×2 (08:26→14:23)
--- NOTE | 2024-07-13 09:16 | PGE_ITS ---
Date of Service Date of service: 07/13/24 Time of Service: 09:16 Assessment and Plan Assessment and plan (1) Osteomyelitis: Status: Acute Assessment and plan: Ceftriaxone 2 g IV until 07/15/2024 via PICC line then d/c home Discontinue PICC on discharge Continue weekly CBC CMP CRP while on antibiotics CRP < 0.5 ID and Orthopedic: Both F/U completed on 07/12--Reports requested and documents still pending No report for further Repeat CT abdomen and pelvis completed recommended on 07/06/2024 -imaging forwarded to [facility] w/o further recommendations Ongoing needed hydromorphone down to Q8 H PRN - patient had gone a full 24 hours period off the meds and was tearfull and delaying PT d/t pain Ongoing scheduled acetaminophen, lidocaine patch and as needed Valium 5 mg for muscle spasm continue miralax added to as needed bowel management meds DVT prophylaxisLovenox 30MG SC BID completed - now TEDs (2) Septic arthritis: Status: Acute Assessment and plan: Positive H. influenza w/o beta-lact. resistance as per Cx As above (3) Left hip pain: Status: Acute Assessment and plan: As above (4) Endometrial cystic hyperplasia: Status: Acute Assessment and plan: Will complete and outpatient referral : ultrasound and [employer] referral for incidental findings endometrial thickening and possible cyst recommendation (5) Thrombosis of thoracic aorta: Status: Acute Assessment and plan: 12/2024: Follow-up with vascular surgery for incidental finding of thoracic aortic mural thrombus Ongoing ASA and statin Discussed with Dr. Guzman Subjective Subjective Patient reports: no new complaints, still having pain, tolerating liquids well, tolerating a regular diet, bowel movement and other (Wants to take less hydromorphone); denies voiding w/o difficulty, diarrhea, vomiting, shortness of breath or fever Exam Narrative Exam Narrative: Constitutional The patient is mobilizing LLE adequately Neuro:Alert and oriented X4 Resp: unlabored breathing, clear lung bilaterally Cardio: regular rhythm, S1, S2, no murmur, bilateral radial and dorsalis pedis pulses are positive GI: Abdomen is not distended, soft and non tender, bowel sounds are present Integumentary: Left hip surgical scar DCI Extremities: moves all 4 ext. Psych: RASS 0, anxious and tearful mood and affect. Objective Last Vital Signs Temp 36.5 C 07/13/24 07:37 Pulse 61 07/13/24 07:37 Resp 18 07/13/24 07:37 BP 116/53 L 07/13/24 07:37 Pulse Ox 98 07/13/24 07:37 Laboratory Results - last 24 hr 07/13/24 05:25 WBC 9.56 RBC 4.27 Hgb 13.4 Hct 39.3 MCV 92 MCH 31.4 MCHC 34.1 RDW 14.2 Plt Count 207 MPV 9.6 Immature Gran % 0.2 Neutrophils % 70.8 Lymphocytes % 20.8 Monocytes % 7.8 Eosinophils % 0.2 Basophils % 0.2 Nucleated RBC % 0.0 Absolute Neutrophils 6.76 H Absolute Lymphocytes 1.99 Absolute Monocytes 0.75 Absolute Eosinophils 0.02 Absolute Basophils 0.02 Sodium 140 Potassium 3.8 Chloride 104 Carbon Dioxide 28.8 Anion Gap 7.2 BUN 19 H Creatinine 1.0 Est GFR (CKD-EPI 2020) 60.98 Glucose 127 H Calcium 9.6 Total Bilirubin 0.3 AST 13 L ALT 16 Alkaline Phosphatase 102 C-Reactive Protein < 0.50 Total Protein 7.1 Albumin 3.3 L Time Spent with Patient Time Spent with Patient: >50 minutes Time was spent: preparing to see the patient(eg.review tests), obtaining and/or reviewing separately otained hiistory, ordering medications,tests, procedures, referring, communicating with other health career development specialist, indepentently interpreting results, counseling the patient and care coordination
--- NOTE | 2024-07-13 11:35 | PTTR_ITS ---
PT Notes Visit Reasons: Osteomyelitis Left Hip
--- NOTE | 2024-07-13 11:35 | PT.INTREAT ---
PT Notes Visit Reasons: Osteomyelitis Left Hip
--- NOTE | 2024-07-13 11:35 | PT.INPN ---
PT Notes Visit Reasons: Osteomyelitis Left Hip Physical Therapy Inpatient Swing Bed Level I Treatment Note Date: 07/13/2024 Dates of Service:07/06/2024 through 07/13/2024 Precautions: Per [facility] orthopedics as of 06/03/2024, observe posterior hip precautions. WBAT on the L LE with AD. Subjective: Seen ID MD at [facility] on 07/12/2024 and is now more motivated to get stronger/better to go home. Agreeable to going home with PT. Objective: General Observation: Patient sitting at edge of bed. Mental Status: Alert and oriented as to person, place, time, and purpose. Able to pay attention, focus, and respond appropriately. Pain: 1-2/10 L hip area with movement Vital Signs: Closely monitored by nursing staff Bed Mobility/Transfers: Minimal cueing provided for use of B hands as needed for support, movement sequence, AD management, and posture to reduce fall risk and minimize pain report Rolling independent Supine to independent Sit to supine independent Sit to stand independent Stand to sit independent Bed to toilet seat independent with FWW Toilet seat to bed independent with FWW Bed to reclining chair independent with FWW Gait: Patient has been made independent in the facility with use of FWW sincelast week. Encouraged to walk at least 2-3x a day beginning today with her walker. Patient went out on her own in the hallway after today's session with PT. Balance: Static Sitting: Normal Dynamic Sitting: Good Static Standing: Good Dynamic Standing: Fair Special Tests: Mobility Limitations Standardized Measure [facility] AM-PAC 6 clicks Basic Mobility Inpatient Short Form: Raw Score: 24 CMS Score: 0% deficit THERA EX: Progressed exercises to standing with direct one-on-one instruction for safe performance of exercises below Informed Consent/Education: Patient was instructed in purpose of PT consult and plan of care. Agreeable to proceed with established PT POC to achieve personal goals. Bilateral heel raises with 5 sh while holding onto window sill x 15 Bilateral partial knee bends with 5 sh while holding onto window sill x 15 Side stepping x 10 to R and to L for 5 sets while holding onto B window sill Assessment: Self limiting unless carefully encouraged not to. Thinks that she could not do anything but with encouragement patient realizes that she could do more than she thought she could. Aversion reaction to pain observed has been observed. Patient has been independent with hallway ambulation using FWW to increase stability of gains achieved in PT and to improve pain tolerance. Antalgia significantly decreased. Step through gait pattern although steps continue to be asymmetrical. Will defer cane progression until L hip BOBBY revision has been done. Patient presents with clinical signs and symptoms consistent with current/admitting diagnoses that have resulted to mobility limitations, gait instability, generalized weakness, and overall ADL decline as demonstrated by the following impairment level findings: 1. Decreased strength to L hip major muscle groups 2. Impaired sitting/standing balance 3. Impaired activity tolerance 4. Limitation of joint range of motion in L hip flexion and knee extension 5. Shortness of breath 6. Swelling in L thigh due to postoperative status Impairments are contributing to the following functional limitations: 1. Decline in bed mobility skills 2. Decline in transfer skills 3. Difficulty with ambulation without assistive device and physical assistance 4. Increased completion time for mobility ADL performance 5. Increased risk for falls 6. Difficulty with managing steps alone safely Patient is assessed as a 49842 moderate complexity based on the following: History: 69-year-old female with past medical history as indicated above Examination: Demonstrable impairment in strength, balance, and mobility level with underlying impairments and functional limitations as exhibited above Presentation: Evolving Decision Makin moderate complexity Goals: Goals X1 week 1. Supine-Sit independent MET 2. Sit-Supine independent MET 3. Sit-Stand independent MET 4. Stand-Sit independent with SPC NOT MET, CONTINUE 5. Bed-Chair independent with SPC NOT MET, CONTINUE 6. Chair-Bed independent with SPC NOT MET, CONTINUE 7. Independent gait on level surface with use of FWW for at least 300 feet without report of pain nor dyspnea MET 8. Independent stair negotiation while holding onto B rails for at least 3 steps without report of pain nor dyspnea NOT MET, CONTINUE 9. Independent with home exercise program NOT MET, CONTINUE 10. Good static and dynamic standing balance/tolerance NOT MET, CONTINUE Plan of Care/Treatment Plan: 1x/day, 7 days/week x 1 week. --Progress ambulation skills over different ground surfaces using least restrictive device as tolerated --Gradual strengthening to B hip and B LE muscles as tolerated while observing posterio hip precuations DISCHARGE RECOMMENDATIONS: [] Home with no services [] [] Home with services [specify] [] Home with outpatient PT [] [] SNF for continued rehabilitation [] [] [facility] Care [] [] SNF versus LTC based on ability to participate and progress [] [X] HH PT vs OP PT for continued post BOBBY rehab when cleared by orthopedic surgeon to progress mobility level without device TREATMENT CODE/TIME: 89356 x 28 minutes for 2 units (11:35-12:03). Thank you for the opportunity to participate in the care of this patient. Sandra Miranda PT, DPT, CLT [facility] [place], [place]
[2024-07-13] MEDS: HYDROmorphone 4 MG TAB PO ×2 (11:39→19:48)
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
[2024-07-13] MEDS: cefTRIAXone 2 GM/50 ML BAG IVPB (14:23)
[2024-07-13 14:55] VITALS: BP 93/45; PULSE 69; RESP 16; O2SAT 100
[2024-07-13 15:13] VITALS: BP 110/55
--- NOTE | 2024-07-13 15:38 | W.NUTRFU ---
Date of service: 07/13/24 Time of Service: 15:38 Nutrition Note NOTE: Have visited with pt multiple times this admission for course of IV abx. Some weight loss in her recent history of about 12kg over the last 15 months. Pt being offered Boost and other caloric dense and high protein oral nutrition supplements. Have let pt aware that she is ordered for regular diet and can feel free to request food and drinks items from the cafeteria to help break the monotony of limited menu choices while here for such a long stay. Total protein lab wnl today with low albumin at 3.3 - more indicative of inflammation but would suggest prealbumin lab for better protein assessment. Have offered some education due to concerns of prediabetes (fasting glucose 127 this morning). Patient feels she has a good idea of what she should eat but admits her preferences drive her to some poor food choices at times. Gave contact info to follow up with outpatient nutrition services should she become concerned about glucose control. discharge anticipated soon - will remain available for any needs/changes to nutrition status Time Spent in Nutritional Counseling and Treatment: 10 min
[2024-07-13 19:29] VITALS: BP 124/60; PULSE 62; RESP 14; TEMP 36.9; O2SAT 100
[2024-07-13] MEDS: Atorvastatin 40 MG TAB 80 MG PO (19:48)
[2024-07-13] MEDS: Propranolol 60 MG CAPCR PO (19:48)
[2024-07-13] MEDS: traZODone 50 MG TAB 150 MG PO (19:50)
[2024-07-13] MEDS: Patch Removal 1 EACH TP (21:31)
[2024-07-14] MEDS: diazePAM 5 MG TAB PO ×2 (02:59→13:39)
[2024-07-14] MEDS: Levothyroxine 50 MCG TAB PO (05:31)
[2024-07-14 07:56] VITALS: BP 119/94; PULSE 62; RESP 16; TEMP 36.1; O2SAT 100
[2024-07-14] MEDS: HYDROmorphone 4 MG TAB PO (08:03)
[2024-07-14] MEDS: Pantoprazole 40 MG TABCR PO (08:03)
[2024-07-14] MEDS: Normal Saline Flush 10 ML SYR IVP (09:38)
[2024-07-14] MEDS: Acetaminophen 325 MG TAB 650 MG PO ×3 (09:39→19:46)
[2024-07-14] MEDS: Aspirin E.C. 81 MG TABEC PO (09:39)
[2024-07-14] MEDS: Lidocaine 5% Patch 1 PATCH TP (09:39)
--- NOTE | 2024-07-14 11:06 | PT.INTREAT ---
PT Notes Visit Reasons: Osteomyelitis Left Hip Physical Therapy Inpatient Swing Bed Level I Treatment Note Date: 07/14/2024 Dates of Service:07/06/2024 through 07/13/2024 Precautions: [place] [facility] [place] of 06[place]03/[place]24, observe posterior hip precautions. WBAT on the L LE with AD. Subjective: Needed encouragement to stay cfocused to today's session activities. COmplained of cramping in L buttock and L thigh during exercise performance. Objective: General Observation: Patient sitting at edge of bed. Mental Status: Alert and oriented as to person, place, time, and purpose. Able to pay attention, focus, and respond appropriately. Pain: 4-5/10 L hip area with movement Vital Signs: Closely monitored by nursing staff Bed Mobility/Transfers: Minimal cueing provided for use of B hands as needed for support, movement sequence, AD management, and posture to reduce fall risk and minimize pain report Rolling independent Supine to independent Sit to supine independent Sit to stand independent Stand to sit independent Bed to toilet seat independent with FWW Toilet seat to bed independent with FWW Bed to reclining chair independent with FWW Gait: Patient has been made independent in the facility with use of FWW sincelast week. Encouraged to walk at least 2-3x a day beginning today with her walker. Patient went out on her own in the hallway after today's session with PT. Balance: Static Sitting: Normal Dynamic Sitting: Good Static Standing: Good Dynamic Standing: Fair Special Tests: Mobility Limitations Standardized Measure [facility] AM-PAC 6 clicks Basic Mobility Inpatient Short Form: Raw Score: 24 CMS Score: 0% deficit THERA EX: Reviewed exercises in supine and standing with direct one-on-one instruction for safe performance of exercises below. HEP provided below. Patient also was given a copy. Access Code: [email or web address] URL: [email or web address] Date: 07/14/2024 Prepared by: Sandra Miranda Exercises - Supine Quad Set - 1 x daily - 7 x weekly - 1 sets - 10 reps - 5 hold - Supine Gluteal Sets - 1 x daily - 7 x weekly - 1 sets - 10 reps - 5 hold - Supine Bridge - 1 x daily - 7 x weekly - 1 sets - 10 reps - 5 hold - Supine Active Straight Leg Raise - 1 x daily - 7 x weekly - 1 sets - 10 reps - 5 hold - Supine Heel Slide - 1 x daily - 7 x weekly - 1 sets - 10 reps - 5 hold - Heel Raise - 1 x daily - 7 x weekly - 1 sets - 10 reps - 5 hold - Single Leg Heel Raise with Counter Support - 1 x daily - 7 x weekly - 1 sets - 10 reps - 5 hold - Mini Squat with Counter Support - 1 x daily - 7 x weekly - 1 sets - 10 reps - 5 hold - Side Stepping with Counter Support - 1 x daily - 7 x weekly - 1 sets - 10 reps - 5 hold Assessment: Emotionally labile. Requires extensive encouragement and redirection to participate in exercise performance today. Patient will benefit from HH PT to ensure that home/environmental modifications are done to optimize posterior hip precaution compliance as well as progress B LE strength/mobility level. Patient has been independent with hallway ambulation using FWW to increase stability of gains achieved in PT and to improve pain tolerance. Antalgia significantly decreased. Step through gait pattern although steps continue to be asymmetrical. Will defer cane progression until L hip BOBBY revision has been done. Goals: Goals X1 week 1. Supine-Sit independent MET 2. Sit-Supine independent MET 3. Sit-Stand independent MET 4. Stand-Sit independent with SPC NOT MET, CONTINUE WITH HHPT AFTER POTENTIAL REVISION BOBBY 5. Bed-Chair independent with SPC NOT MET, CONTINUE WITH HHPT AFTER POTENTIAL REVISION BOBBY 6. Chair-Bed independent withSPC NOT MET, CONTINUE WITH HHPT AFTER REVISION BOBBY 7. Independent gait on level surface with use of FWW for at least 300 feet without report of pain nor dyspnea MET 8. Independent stair negotiation while holding onto B rails for at least 3 steps without report of pain nor dyspnea NOT MET, CONTINUE with HH PT 9. Independent with home exercise program MET 10. Good static and dynamic standing balance/tolerance NOT MET, CONTINUE Plan of Care/Treatment Plan: Continue with HH PT --Progress ambulation skills over different ground surfaces using least restrictive device as tolerated --Gradual strengthening to B hip and B LE muscles as tolerated while observing posterio hip precuations DISCHARGE RECOMMENDATIONS: [] Home with no services [] [] Home with services [specify] [] Home with outpatient PT [] [] SNF for continued rehabilitation [] [] [facility] [] [] SNF versus LTC based on ability to participate and progress [] [X] HH PT vs OP PT for continued post BOBBY rehab when cleared by orthopedic surgeon to progress mobility level without device TREATMENT CODE/TIME: 73078 x 43 minutes for 3 units (11:12-11:55).
[2024-07-14] MEDS: cefTRIAXone 2 GM/50 ML BAG IVPB (12:40)
--- NOTE | 2024-07-14 14:36 | PDOC.CMPRO ---
Date of service: 07/14/24 Time of Service: 14:37 Care Management Progress Note Progress Note Text Progress Note Text: Libia has been moving around the unit quite a bit today. She is feeling steady on her feet, but is anxious about going home tomorrow. How will she get food? How will she do her chores and get to appointments? What kind of pain management regime will she have? CM offered supportive listening. CM also reminded Libia that she will have PT/OT within 48h, we can give her a To Go bag with some food. She will be discharged with a plan to fight her pain, and she will f/u with her PCP on 07/20/ Discharge Potential Discharge Needs: PCP F/U Appt (appt with PCP scheduled for 07/20 at 2:20) Anticipated Barriers to Discharge: None Identified Patient/Family Education Needs: Review discharge instructions, discuss Ask Me Three Transportation: Private vehicle Plan: Libia will be discharged home tomorrow after her dose of IV abx and after her PICC line is removed. She will have new HH PT/OT services. She was seen by both ID and ortho on 07/12, so no longer has the ortho f/u. [facility] will contact her for her next appt, Libia believes it will be in about 2 weeks to have her hip aspirated and cultured in anticipation of her next surgery. She will f/u with her PCP on 07/20 and will transport home in a private vehicle with her daughter. Social Determinants of Health Screening Will the Patient Participate in the Screening?: Declined to provide Anticipated HH Services Anticipated HH Services at Discharge [facility] Needed, OT and PT Anticipated Date of Discharge: 07/15/24. Following Provider: Bo Guzman.
[2024-07-14 19:36] VITALS: BP 124/60; PULSE 79; RESP 20; TEMP 36.7; O2SAT 99
[2024-07-14] MEDS: traZODone 50 MG TAB 150 MG PO (19:46)
[2024-07-14] MEDS: Propranolol 60 MG CAPCR PO (19:46)
[2024-07-14] MEDS: Atorvastatin 40 MG TAB 80 MG PO (19:47)
[2024-07-14] MEDS: Patch Removal 1 EACH TP (21:57)
[2024-07-15] MEDS: Levothyroxine 50 MCG TAB PO (05:59)
[2024-07-15 06:10] VITALS: BP 120/80; PULSE 60; RESP 18; TEMP 36.2; O2SAT 98
[2024-07-15] MEDS: diazePAM 5 MG TAB PO ×2 (06:16→11:31)
[2024-07-15 07:57] VITALS: BP 100/50; PULSE 69; RESP 20; TEMP 36.7; O2SAT 98
[2024-07-15] MEDS: Acetaminophen 325 MG TAB 650 MG PO (09:03)
[2024-07-15] MEDS: Aspirin E.C. 81 MG TABEC PO (09:07)
[2024-07-15] MEDS: Lidocaine 5% Patch 1 PATCH TP (09:07)
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
--- NOTE | 2024-07-15 09:39 | PDOC.HHF2F ---
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 Admitted to [facility] on 06/27/24. The patient work with physical therapy while maintaining anterior hip precautions. Repeated CT imaging reviewed by [facility] [place] [place] orthopedic and DI on 07/12/24 during outpatient clinic visits; no further recommendations made except weaning oral opioids. Your are discharged with a few hydromorphone pills to only be taken twice a day if needed if the scheduled acetaminophen and as needed ibuprofen are not effective to treat your pain. The patient will be discharged home with home health for physical therapy and occupational therapy; follow-up with PCP nehemiahuled 07/20/24 at 14:20. Recommendations for outpatient follow-up: -Vascular surgery referral for mural thrombus of the descending thoracic and abdominal aorta- -Aortic duplex imaging recommendation 12/2024- Might have been ordered by [facility] [place]- please confirm -HONING MACHINE OPERATOR referral completed for endometrial thickening and possible cyst- US recommended by [facility] [place] imaging schedule for 08/03/2024- Call the ortho clinic @[phone] to confirm if they have not reached back to the patient. Discussed with Dr. Guzman Physical Therapist: Check all that apply Increase strength & endurance for safe mobility at home: Ordered To design/establish home maintenance program: Ordered Fall reduction therapy program for patient with history of frequent falls: Ordered Home safety evaluation and teaching/gait training including stair management (if applicable): Ordered Occupational Therapist: Evaluate and treat for patient unable to perform ADL/IADL/self-care: Ordered Upper extremity strengthening, range and motion: Ordered Home Bound Status Requires the aid of supportive device (check all that apply): Walker Describe why leaving home would require a considerable and taxing effort: Requires frequent rest periods Encounter Date and Reason: I certify that a FTF encounter for this patient was performed on July 15, 2024 and that such encounter was related to the primary reason the patient requires home health services. The encounter was conducted in the following manner: By me as the certifying physician, CRAFT SUPERINTENDENT, PA or By an inpatient physician, CRAFT SUPERINTENDENT or PA during an inpatient stay who communicated findings to me, Certification And Authentication I certify that I composed the above information based on my clinical judgment relating to this patient's medical condition and, if applicable, clinical findings communicated to me by the NPP or inpatient physician who performed the FTF encounter. Name of Provider that will be monitoring home health services: Bo Guzman
[2024-07-15] MEDS: Normal Saline Flush 10 ML SYR IVP (10:09)
[2024-07-15] MEDS: cefTRIAXone 2 GM/50 ML BAG IVPB (10:10)
[2024-07-15] MEDS: Ibuprofen 400 MG TAB PO (10:10)
--- NOTE | 2024-07-15 13:35 | CMSCP_ITS ---
Date of service: 07/15/24 Time of Service: 12:30 Swingbed Plan of Care Activites/Discharge Plan of care: SWING BED PROGRAM ACTIVITIES/DISCHARGE PLAN OF CARE ACTIVITIES PLAN Date: Identified Need: Intervention/Plan: Initials DISCHARGE PLAN Date:07/15/2024 Identified Need:Libia was discharged home today with new services of PT and OT. She was driven home by her daughter and she will f/u with her PCP and [facility] ortho Intervention/Plan: Initials PK
--- NOTE | 2024-07-15 13:37 | CMDISCH_ITS ---
Date of service: 07/15/24 Time of Service: 12:30 LACE Index Scoring Tool Questions: Length of Stay (in days): 14 or more Was the patient admitted via the E.D.?: No E.D. Visits: 2 Answers: Total Score: 9 Risk of Readmission: Low Risk Care Management Discharge Plan Reason for Hospitalization: antibiotic therapy and PT/OT s/p left hip fracture and osteomyelitis Discharge Plan: Libia was discharged home this afternoon with new HH services of PT/OT. She will f/u with her PCP on 07/20 and with [facility]. She will be contacted by [facility] regarding her next appt, which should be in about 2 weeks. Libia will continue per her plan of care as prescribed. She was driven home by her daughter. Patient/Family Education Needs: Review of discharge instructions, activity, limitations and discuss Ask me 3. Services Needed at Discharge: Home Health Care Services (PT/OT) SDOH Health Related Social Needs: Health related social needs feeling lonely/isolated (Z 60.8)
== END 2024-07-15 12:25 | disposition home health service (06) | DRG 560 ==
PROVIDERS: Admitting Provider Family Medicine; PCP Family Medicine; Responsible Provider Nurse Practitioner Acute Care; Visit Provider Family Medicine
DX: Z47.1 Aftercare following joint replacement surgery (principal); I74.11 Embolism and thrombosis of thoracic aorta; M86.152 Other acute osteomyelitis, left femur; M00.852 Arthritis due to other bacteria, left hip; Z79.2 Long term (current) use of antibiotics; M25.552 Pain in left hip; N85.00 Endometrial hyperplasia, unspecified; F12.20 Cannabis dependence, uncomplicated; F17.210 Nicotine dependence, cigarettes, uncomplicated; G47.00 Insomnia, unspecified; E03.9 Hypothyroidism, unspecified; E78.5 Hyperlipidemia, unspecified; F43.10 Post-traumatic stress disorder, unspecified; Z96.642 Presence of left artificial hip joint; M48.061 Spinal stenosis, lumbar region without neurogenic claudication; M51.369 Other intervertebral disc degeneration, lumbar region without mention of lumbar back pain or lower extremity pain; G62.9 Polyneuropathy, unspecified; R73.03 Prediabetes; I10 Essential (primary) hypertension; K52.9 Noninfective gastroenteritis and colitis, unspecified; B96.3 Hemophilus influenzae [H. influenzae] as the cause of diseases classified elsewhere
CPT/HCPCS: 00123; 36415; 71045; 80053; 85652; 97110; 97162; 97165; 97530; 97535; 99306; 99316; 74176; 85025; 86140; 99310; J0696; J1650; J1885; J3490